=== PATIENT | female | born 1995 | race Caucasian/White ===

== ENCOUNTER 2017-03-16 09:36 | Emergency (ER) | payer BC, OTHER ==
[~2017-03-16] VITALS: Ht 167.6 cm; Wt 61.7 kg
[~2017-03-16 09:36] MED LIST: BCPILLS PO; IBUP-1277 PO
[2017-03-16 09:47] VITALS: TEMP 36.9; Ht 167.6 cm; Wt 61.7 kg
[2017-03-16] MEDS ORDERED: AMOXICILLIN 250 MG CAP PO ONE (10:30)
[2017-03-16] MEDS ORDERED: CIPROFLOXACIN HCL 0.3% OP SOLN 2.5 ML BTL OP ONE (10:30)
[2017-03-16] MEDS ORDERED: OXYCODONE/ACETAMINOPHEN 5-325 TAB PO ONE (10:30)
--- NOTE | 2017-03-16 10:30 | EMERGENCY ROOM VISIT NOTE ---
ED Visit Note First contact with patient: 09:56 CHIEF COMPLAINT: Earache HISTORY OF PRESENT ILLNESS: This 22-year-old female patient presents to the emergency department ambulatory and states they have had a right sided earache the last 1 week. The pain is moderate, and is gradually increasing. They have noticed swelling and tenderness around the ear canal and pain below the ear on the upper neck. The pain is rated as severe and 8/10. The patient has not been swimming recently. The patient does have a history of ear problems and has had myringotomy tubes in the past. The patient has not had other URI symptoms to take. The patient has not had a fever. The patient has taken ibuprofen with minimal relief of the pain. She reports purulent and bloody drainage. REVIEW OF SYSTEMS: A 6 system review of systems was completed with positives and pertinent negatives listed in the HPI. ALLERGIES: No known allergies MEDICATIONS: control pills PMH: None SOCIAL HISTORY: The patient lives locally. She does not smoke PHYSICAL EXAM: Vital Signs: Reviewed Nurse's notes, vital signs stable. GENERAL : This is a 22-year-old female, in no acute distress, non toxic in appearance, well developed, well nourished. SKIN: Normal. MOUTH: The pharynx is normal in appearance and the tonsils are not enlarged. The airway is patent. There are no exudates over the tonsils. EARS: The right tympanic membrane is difficult to visualize given the swelling and drainage and the ear canal is swollen and inflamed and there is tragal tenderness. There is moderate drainage in the canal. The left tympanic membrane is pearly ferguson without erythema or bulging and the external auditory canal is clear. HEART: Regular rate and rhythm without murmurs gallops or rubs. LUNGS: Clear to auscultation bilaterally without wheezes, rales or rhonchi. No dullness to percussion. No accessory muscle use. No retractions. ED COURSE: I examined the patient. A wick was easily placed in the right ear by myself. Cipro drops were placed in the ear. She will also be placed on amoxicillin and was given a dose of 500 mg by mouth in the ER. The patient has significant discomfort and will also be placed on Percocet for a very short period. She should follow up with otolaryngology if symptoms persist. She should return with worsening symptoms. The patient was discharged home in stable condition. Problem List Medical Problems: (1) SYNCOPE AND COLLAPSE Status: Chronic Current/Historical Medications Scheduled Amoxicillin (Amoxil), 500 MG PO TID Ciprofloxacin/Dexamethasone (Ciprodex 0.3-0.1 %), 4 DROPS OT BID Scheduled PRN Oxycodone/Acetaminophen 5MG/325MG (Percocet 5MG/325MG), 1 TAB PO Q4H PRN for Pain Allergies Coded Allergies: No Known Allergies (Unverified , 03/16/17) Vital Signs Date Time Temp Pulse Resp B/P Pulse Ox O2 Delivery O2 Flow Rate FiO2 03/16/17 11:34 62 20 128/54 98 Room Air 03/16/17 09:47 36.9 85 16 121/84 100 Room Air Medications Administered Medications (Trade) Dose Ordered Sig/Elsy Route Start Time Stop Time Status Last Admin Dose Admin Oxycodone/ Acetaminophen (Percocet 5-325mg Tab) 1 tab NOW ONCE PO 03/16/17 10:30 03/16/17 10:31 DC 03/16/17 10:53 1 TAB Ciprofloxacin HCl (Ciprofloxacin 0.3% Op Soln) 5 drops NOW ONCE OP 03/16/17 10:30 03/16/17 10:31 DC 03/16/17 10:54 5 DROPS Amoxicillin (Amoxil Cap) 500 mg NOW ONCE PO 03/16/17 10:30 03/16/17 10:31 DC 03/16/17 10:53 500 MG Departure Information Impression Primary Impression: Otitis externa Additional Impression: Otitis media Dispostion Home / Self-Care Condition GOOD Prescriptions Amoxicillin (AMOXIL) 500 Mg Tab 500 MG PO TID for 10 Days, #30 TAB Prov: Joelle Donahue PA-C 03/16/17 Oxycodone/Acetaminophen 5MG/325MG (PERCOCET 5MG/325MG) Tab 1 TAB PO Q4H Y for Pain, #18 TAB For Initial Treatment Prov: Joelle Donahue PA-C 03/16/17 Ciprofloxacin/Dexamethasone (Ciprodex 0.3-0.1 %) 112 Drops/7.5 Ml Susp 4 DROPS OT BID for 5 Days, #7.5 ML Prov: Joelle Donahue PA-C 03/16/17 Referrals No Doctor, Assigned (PCP) Andrea Barkley MD Forms HOME CARE DOCUMENTATION FORM, IMPORTANT VISIT INFORMATION, WORK / SCHOOL INSTRUCTIONS Patient Instructions ED Otitis Externa, My [facility] Additional Instructions 4 drops in the right ear every 12 hours for 7 days Amoxicillin 500mg every 6-8 hours for infection Motrin 600 mg every 6-8 hours for moderate pain Percocet 1-2 tablet every 4-6 hours as needed for worse pain. No driving or alcohol use with Percocet and do not take with Tylenol. Recheck with ENT or your family doctor in 5-7 days if no improvement The ear wick should fall out in 5-7 days; if it does not you may need to see PCP or the ER to have it removed. Work Instructions Return To Work: 2 days Problem Qualifiers Primary Impression: Otitis externa
[2017-03-16] MEDS ORDERED: CPRDOTS OT (11:27)
[2017-03-16] MEDS ORDERED: OXYC-57 PO (11:27)
[2017-03-16] MEDS ORDERED: AMOX500T3 PO (11:27)
[2017-03-16 11:34] VITALS: BP 128/54; PULSE 62; O2SAT 98
== END 2017-03-16 11:59 | disposition home or self-care (01) ==
LOC: C.EDB 09:37
DX: H60.91 Unspecified otitis externa, right ear (principal); H66.91 Otitis media, unspecified, right ear; R55 Syncope and collapse

== ENCOUNTER → 2017-08-19 | Outpatient (CLI) | payer BC, OTHER ==
[~2017-08-19] MED LIST changes: +AMOX500T3 PO; -BCPILLS PO; -IBUP-1277 PO; +OXYC-57 PO
[2017-08-19 16:49] LABS: URINE APPEARANCE CLEAR (CLEAR); URINE BILIRUBIN NEG (NEG); URINE COLOR YELLOW; URINE EPITHELIAL CELL AUTO >30 /lpf (0-5); URINE NITRITE NEG (NEG); URINE PH 6.5 (4.5-7.5); URINE SPECIFIC GRAVITY 1.015 (1.000-1.030); UROBILINOGEN NEG (NEG)
[2017-08-19 16:58] LABS: MANUAL MICROSCOPIC REQUIRED? NO; REVIEW REQ? NO
== END | disposition home or self-care (01) ==
LOC: C.LAB1850 15:55
PROVIDERS: ATTEND Obstetrics & Gynecology
DX: R39.9 Unspecified symptoms and signs involving the genitourinary system (principal)

== ENCOUNTER → 2018-01-03 | Outpatient (CLI) | payer BC, OTHER ==
[~2018-01-03] MED LIST changes: -OXYC-57 PO
== END | disposition home or self-care (01) ==
LOC: C.LABSPEC 17:28
PROVIDERS: ATTEND Obstetrics & Gynecology
DX: Z34.01 Encounter for supervision of normal first pregnancy, first trimester (principal)

== ENCOUNTER → 2018-01-06 | Outpatient (CLI) | payer BC | END | disposition home or self-care (01) | LOC: C.LABSPEC 15:45 | PROVIDERS: ATTEND Obstetrics & Gynecology | DX: Z34.01 Encounter for supervision of normal first pregnancy, first trimester (principal) ==

== ENCOUNTER → 2018-01-06 | Outpatient (CLI) | payer BC | END | disposition home or self-care (01) | LOC: C.PAPS 09:21 | PROVIDERS: ATTEND Obstetrics & Gynecology | DX: Z34.01 Encounter for supervision of normal first pregnancy, first trimester (principal) ==

== ENCOUNTER → 2018-01-06 | Outpatient (CLI) | payer BC ==
[2018-01-06 15:35] LABS: BASO % 0.2 %; BASO ABS # 0.02 K/uL (0-0.2); EOS % 0.7 %; EOS ABS # 0.07 K/uL (0-0.5); HEMATOCRIT 36.4 % (37-47); IG# 0.03 K/uL (0.00-0.02); LYMPH % 14.8 %; MEAN CELL VOLUME 83.3 fL (80-100); MEAN CORPUSCULAR HEMOGLOBIN 29.7 pg (25-34); MEAN CORPUSCULAR HGB CONC 35.7 g/dl (32-36); MEAN PLATELET VOLUME 9.9 fL (7.4-10.4); MONO % 4.2 %; MONO ABS # 0.43 K/uL (0.11-0.59); NEUT % 79.8 %; NEUT ABS # 8.07 K/uL (1.4-6.5); PLATELET COUNT 292 K/uL (130-400); RED CELL DISTRIBUTION WIDTH CV 11.8 % (11.5-14.5); RED CELL DISTRIBUTION WIDTH SD 36.2 fL (36.4-46.3); WHITE BLOOD COUNT 10.12 K/uL (4.8-10.8)
== END | disposition home or self-care (01) ==
LOC: C.LAB1850 14:51
PROVIDERS: ATTEND Obstetrics & Gynecology
DX: Z34.01 Encounter for supervision of normal first pregnancy, first trimester (principal)

== ENCOUNTER → 2018-02-28 | Outpatient (CLI) | payer BC | END | disposition home or self-care (01) | LOC: C.LAB1850 16:03 | PROVIDERS: ATTEND Obstetrics & Gynecology | DX: Z34.02 Encounter for supervision of normal first pregnancy, second trimester (principal) ==

== ENCOUNTER → 2018-04-04 | Outpatient (CLI) | payer BC | END | disposition home or self-care (01) | LOC: C.LAB1850 11:13 | PROVIDERS: ATTEND Obstetrics & Gynecology | DX: O28.1 Abnormal biochemical finding on antenatal screening of mother (principal) ==

== ENCOUNTER 2019-03-31 17:08 | Inpatient (IN) ==
--- OUTSIDE RECORDS SUMMARY | 2019-03-31 17:11 | External Medical Summary | Continuity of Care Document ---
:1995 Author Name Jt Rivera, Provider Address Unavailable Unavailable , Care Team Providers Name Role Phone DIRECT[facility] OF [facility]ION SERVICES [facility], Nursing Station Unavailable Luis Vargas M.D. Unavailable [email or web address] PCP, UNKNOWN Unavailable Unavailable Unavailable Unavailable Unavailable Problems On depo medroxyprogesterone acetate for contraception (V25.4 9) (Z30.42) Oral contraceptive prescribed (V25.01) (Z30.011) Encounter for visit (V24.2) (Z39.2) S/P tube myringotomy (V45.89) (Z96.22) Failed hearing screening (794.15) (R94.120) Allergies and Adverse Reactions No Known Drug Allergies (Allergy) Medications medroxyPROGESTERone Acetate 150 MG/ML Intramuscular Mendoza spension; every 3 months Miguel Vargas Start: 18-Jan-2019 Quantity: 1 Milliliter Refills: 2 Pre-Nini TABS Refills: 0 Procedures History of Tonsillectomy Status: Complet ed History of Myringotomy - With Ventilating Tube Insertion Status: Completed Immunizations Hepatitis B On: Jan-1996 Hepatitis B On: 1996 DTaP - HIB On: 1996 IPV On: 1996 DTaP - HIB On: 1996 IPV On: 1996 Hepatitis B On: Jul-1996 DTaP - HIB On: Jul-1996 IPV On: Jul-1996 DTaP On: 26-Jan-1997 IPV On: 26-Jan-1997 MMR On: 26-Jan-1997 MMR On: 15-Jun-2000 Tdap On: 18-Jun-2011 8:46 Lot #: [id number], [employer] HPV (Gardasil) On: 18-Jun-2011 8:44 Lot #: [id number], [employer] Menactra Intramuscular Injectable On: 18-Jun-2011 8:46 Lot #: [id number], [employer] HPV (Gardasil) On: 18-Feb-2012 9:55 Lot #: [id number], [employer] Varicella On: 10-Mar-2012 15:42 Lot #: [id number], [employer] HPV (Gardasil) On: 11-Jul-2014 12:39 Lot #: [id number], [employer] Menactra Intramuscular Injectable On: 11-Jul-2014 12:39 Lot #: [id number], [employer] Vaqta 25 UNIT/0.5ML Intramuscular Suspension On: 11-Jul-2014 12:40 Lot #: [id number], [employer] PPD On: 30-Jul-2014 12:09 Lot #: [id number], [employer] Hepatitis A On: 17-Jul-2015 14:09 Lot #: [id number], [employer] Fluzone INJ On: 17-Jul-2015 14:11 Lot #: [id number], [employer] Fluzone Quadrivalent 0.5 ML Intramuscular Suspension On: Dec-2017 16:44 Lot #: [id number], [employer] Tdap (Adacel) On: 23-May-2018 16:10 Lot #: [id number], [employer] Family History Father Family history of type 2 diabetes mellitus (V18.0) (Z83.3) S tatus: Active FHx: hypercholesterolemia (V18.19) (Z83.42) Status: Active aunt Family history of breast cancer (V16.3) (Z80.3) Status: Acti ve Social History - Smoking Status Never smoker Plan of Treatment Planned Encounters Appointment; [facility], Nursing Station Start: 11-Apr-2019 9:3 0 Request Planned Observations Planned Goals not documented Results No Known Results Results not documented Encounters Appointment; [facility], Nursing Station 24-Jan-2019 9:30 Encounter Diagnosis: Problem not documented Appointment; Luis Vargas M.D. 14-Sep-2018 13:30 Encounter Diagnosis: Problem not documented Appointment; [facility], Nursing Station 08-Aug-2018 10:30 Encounter Diagnosis: Problem not documented Appointment; Luis Vargas M.D. 26-Jul-2018 15:30 Encounter Diagnosis: Problem not documented Appointment; Edmund Blanco M.D. 19-Jul-2018 15:20 Encounter Diagnosis: Problem not documented Appointment; Helen Washington M.D. 04-Jul-2018 15:50 Encounter Diagnosis: Problem not documented Appointment; Donte Martinez M.D. 20-Jun-2018 15:40 Encounter Diagnosis: Problem not documented Appointment; Tegan Gunter M.D. 06-Jun-2018 15:40 Encounter Diagnosis: Problem not documented Appointment; Luis Vargas M.D. 23-May-2018 15:40 Encounter Diagnosis: Problem not documented Appointment; Donte Martinez M.D. 25-Apr-2018 16:00 Encounter Diagnosis: Problem not documented Appointment; OBGYN [facility], Ultrasound 25-Apr-2018 15:45 Encounter Diagnosis: Problem not documented Appointment; Tegan Gunter M.D. 28-Mar-2018 11:50 Encounter Diagnosis: Problem not documented Appointment; OBGYN [facility], Ultrasound 28-Mar-2018 11:00 Encounter Diagnosis: Problem not documented Appointment; Helen Washington M.D. 28-Feb-2018 15:10 Encounter Diagnosis: Problem not documented Appointment; Chary Brown M.D. 31-Jan-2018 15:40 Encounter Diagnosis: Problem not documented Appointment; OB SC1, Procedure Rm 06-Jan-2018 14:00 Encounter Diagnosis: Problem not documented Appointment; Tegan Gunter M.D. 06-Jan-2018 14:00 Encounter Diagnosis: Problem not documented Appointment; OB [facility], Nursing Station 03-Jan-2018 15:00 Encounter Diagnosis: Problem not documented Appointment; Allison Duarte PA-C 09-Sep-2017 10:50 Encounter Diagnosis: Problem not documented Appointment; OBGYN SC[facility], Ultrasound 26-Aug-2017 13:00 Encounter Diagnosis: Problem not documented Appointment; Allison Duarte PA-C 19-Aug-2017 15:00 Encounter Diagnosis: Problem not documented Appointment; [facility], Nursing Station 11-Apr-2019 9:30 Encounter Diagnosis: Problem not documented
[2019-03-31] MEDS ORDERED: SODIUM CHLORIDE 0.9% 1000ML 1,000 ML IV ONE (17:38)
[2019-03-31] MEDS ORDERED: KETOROLAC TROMETHAMINE 15 MG/ML VIAL IV STA (17:38)
[2019-03-31] MEDS ORDERED: ONDANSETRON INJ 2 MG/ML 2 ML VIAL IV STA ×2 (17:38→19:21)
[2019-03-31 17:56] LABS: Basophils # (auto) 0.02 K/uL (0-0.2); Basophils % (auto) 0.1 %; Hematocrit (blood only) 41.7 % (37-47); Hemoglobin 15.1 g/dL (12.0-16.0); Immature Granulocytes # (auto) 0.06 K/uL (0.00-0.02); Immature Granulocytes % (auto) 0.3 %; Lymphocytes # (auto) 1.05 K/uL (1.2-3.4); Lymphocytes % (auto) 5.5 %; Mean Corpuscular Hgb Conc 36.2 g/dL (32-36); Mean Corpuscular Volume 81.9 fL (80-100); Mean Platelet Volume 10.4 fL (7.4-10.4); Monocytes # (auto) 0.45 K/uL (0.11-0.59); Monocytes % (auto) 2.4 %; Neutrophils # (auto) 17.54 K/uL (1.4-6.5); Neutrophils % (auto) 91.7 %; Platelet Count 329 K/uL (130-400); RDW Coefficient of Variation 12.5 % (11.5-14.5); RDW Standard Deviation 37.5 fL (36.4-46.3); Red Blood Count 5.09 M/uL (4.2-5.4); White Blood Count 19.12 K/uL (4.8-10.8)
[2019-03-31 18:05] LABS: Albumin Level 4.9 gm/dl (3.4-5.0); BUN Creatinine Ratio 15.3 (10-20); Bilirubin Direct 0.2 mg/dl (0-0.2); Calcium 9.9 mg/dl (8.5-10.1); Creatinine Clr Calc Pharmacy 95.3 ml/min; Est GFR (African American) 116.9; Est GFR (Non-African American) 100.9; Magnesium 1.7 mg/dl (1.8-2.4); Potassium 3.6 mmol/L (3.5-5.1)
[2019-03-31 18:07] LABS: Bilirubin,Total 0.9 mg/dl (0.2-1); Total Protein 8.2 gm/dl (6.4-8.2)
[2019-03-31 18:34] LABS: Appearance Urine Clear (Clear); Bilirubin Urine Negative (Negative); Blood Urine Negative (Negative); Color Urine Yellow; Glucose Urine UA Negative (Negative); Ketones Urine 1+ (Negative); Leukocyte Esterase Urine Negative (Negative); Nitrite Urine Negative (Negative); Specific Gravity Urine 1.015 (1.000-1.030); Urobilinogen Urine Negative (Negative); pH Urine 8.5 (4.5-7.5)
[2019-03-31 18:40] LABS: Protein Urine 1+ (Negative)
[2019-03-31 18:55] LABS: Bacteria Urine Negative (Negative); Epithelial Cell Urine >30 /lpf (0-5); RBC Urine 0-4 /hpf (0-4); WBC Urine 0-5 /hpf (0-5)
[2019-03-31] MEDS ORDERED: SODIUM CHLORIDE 0.9% 1000ML 1,000 ML IV SCH ×2 (19:00→19:30)
[2019-03-31] MEDS ORDERED: IOVERSOL 100ml IV PRN (19:00)
--- NOTE | 2019-03-31 19:12 | CT Scan Report ---
CT OF THE ABDOMEN AND PELVIS WITH CONTRAST CLINICAL HISTORY: Abdominal pain and vomiting. COMPARISON STUDY: CT of the abdomen and pelvis February 10, 2019. TECHNIQUE: Following IV administration of 95 mL of Optiray-320, axial images of the abdomen and pelvi s were obtained from the lung bases to the proximal femurs. Images were reviewed in the axial, sagitt al, and coronal planes. IV contrast was administered without complication. Automated exposure contro l was utilized for the study. A dose lowering technique was utilized adhering to the principles of A RAD. CT DOSE: 267.00 mGy.cm FINDINGS: Lung bases are clear. No pneumatosis, free air or portal venous gas is present. Periportal edema within the liver as well as mild gallbladder wall thickening may be related to hydration. The s pleen, adrenal glands, kidneys and pancreas are normal. No biliary or pancreatic ductal dilatation. T here is no peripancreatic or pericholecystic infiltration. Major vasculature is patent. There is no e vidence for a bowel obstruction. The appendix is normal. The caliber and wall thickness of small and large bowel are normal. No lymphadenopathy or ascites is present. There are no suspicious skeletal le sions. Pelvic calcifications reflect phleboliths. IMPRESSION: 1. No acute process within the abdomen or pelvis. 2. Mild periportal edema which may be related to hydration. Electronically signed by: Edu Gonzales M.D. 03/31/2019 7:11 PM
[2019-03-31] MEDS ORDERED: METOCLOPRAMIDE HCL INJ 5 MG/ML 2 ML VIAL IV ONE (20:22)
[2019-03-31] MEDS ORDERED: DiphenhydrAMINE HCL 50 MG/ML VIAL IV STA (20:22)
--- NOTE | 2019-03-31 20:30 | Ultrasound Report ---
US gallbladder CLINICAL HISTORY: Abdominal pain. Evaluate for cholecystitis. COMPARISON STUDY: CT of the abdomen and pelvis performed earlier today. FINDINGS: The liver is sonographically normal. There is no biliary ductal dilatation. The common bile duct measures 2 mm in caliber. The gallbladder is normal. There are no gallstones. The pancreas is w ithin normal limits. There is no right hydronephrosis. IMPRESSION: Normal right upper quadrant ultrasound. Electronically signed by: Edu Gonzales M.D. 03/31/2019 8:29 PM
--- NOTE | 2019-03-31 20:44 | Emergency Department Note ---
Entered by Karen Burk acting as a scribe for Brandon Lewis History of Present Illness General Chief complaint: Vomiting Stated complaint: NAUSEA, VOMITING, DIARRHEA Time Seen by Provider: 03/31/19 17:27 Source: patient Limitations: no limitations History of Present Illness Provider complaint: vomiting Onset (ago): hour(s) Location: mouth Maximum Pain Intensity: 4 Associated symptoms: + denies other symptoms (abdominal pain, pain with urination, blood in stool, blood in vomit, black vomit ) and + nausea/vomiting; no fever/chills Treatments prior to arrival: none The patient is a 24 year old female who presents to the Emergency Room with complaints of vomiting that began earlier in the day prior to arrival. The pa tient states that her vomit is a yellow/green color. The patient denies any vomit that is bloody or black in color. The patient states that she has nausea, fevers, chills, and abdominal pain. The patient denies any syncope, pain with urination, or blood in stools. The patient denies any other medical problems or chance of . Home Medications Home Medications Medication Instructions Recorded Confirmed Type medroxyprogesterone [Depo-Provera] 150 mg IM DIRECTED 02/07/19 03/31/19 History promethazine 25 mg PO Q6H PRN 03/31/19 03/31/19 History Allergies Allergy/AdvReac Type Severity Reaction Status Date / Time No Known Allergies Allergy Verified 03/31/19 18:21 Past Med/Surg History Social History Preferred Language: Mohawk Communication Ability: Effective Visual Impairment: No Limitations Hearing Ability: Normal Beliefs That Will Affect Care: None marital status: Single Current Living Situation: Significant Other Feels Safe at Home: Yes Smoking Status: Never smoker Second Hand Exposure: No Hx Alcohol Use: No Hx Substance Use: Yes substance use type: marijuana Review of Systems See HPI for pertinent positives & negatives. and A total of 10 systems reviewed and were otherwise negative Physical Exam Vital Signs Vital Signs - 24 hr 03/31/19 17:12 03/31/19 19:01 03/31/19 20:30 Temperature 37 C Temperature Source Oral Sepsis Recent Fever Within 48 Hours No Sepsis Action Taken by Nursing No Action Required Pulse Rate 76 Pulse Rate [Right Finger] 88 79 Respiratory Rate 22 18 18 Respiratory Effort / Characteristics Non-Labored Spontaneous Respiratory Depth Normal Blood Pressure 141/101 H Blood Pressure [Right Arm] 148/93 H Blood Pressure Mean 114 Blood Pressure Mean [Right Arm] 111 Blood Pressure Position Sitting Pulse Oximetry 100 98 100 Oxygen Delivery Method Room Air GENERAL: She is oriented to person, place, and time. She appears well-developed and well-nourished. She does not appear distressed. HENT: Exam performed. - Head: Normocephalic and atraumatic. - Right Ear: External ear normal. No mastoid tenderness. - Left Ear: External ear normal. No mastoid tenderness. -Mouth/Throat: The oropharynx is clear and moist. No trismus in the jaw. No dental abscesses or uvula swelling. No oropharyngeal exudate or tonsillar abscesses. EYES: Conjunctivae and EOM are normal. Pupils are equal, round, and reactive to light. Right eye exhibits no discharge. Left eye exhibits no discharge. No scleral icterus. NECK: Normal range of motion. Neck supple. No JVD present. No spinous process tenderness present. No carotid bruit present. No rigidity. No tracheal deviation and normal range of motion present. No Brudzinski's sign and no Kernig's sign noted. CV: Normal rate, regular rhythm, normal heart sounds and intact distal pulses. There is no peripheral edema. Palpable radial pulses bue. PULM/CHEST: Effort normal and breath sounds normal. No respiratory distress. No stridor. She has no wheezes. She has no rales. Chest Wall: She exhibits no tenderness. ABD: The abdomen is soft. Bowel sounds are normal. She has no distension. No mass is present. There is no tenderness. There is diffuse pain with palpitation to the abdomen. There is no rebound, no guarding, no Simpson's sign and no tenderness at McBurney's point. Rovsig negative MUSC/SKEL: Normal range of motion. There is no peripheral edema, tenderness or deformity. LYMPH: No cervical adenopathy. NEURO: She is alert and oriented to person, place, and time. She has normal strength. No cranial nerve deficit or sensory deficit. Coordination and gait normal. GCS eye subscore is 4. GCS verbal subscore is 5. GCS motor subscore is 6. cerbellar tests wnl. SKIN: Skin is warm and dry. She is not diaphoretic. PSYCH: She has a normal mood and affect. Her behavior is normal. Judgment and thought content normal. Course 1733: The patient was evaluated in room C8, and a complete history and physical examination were performed. 1899: I checked on and updated the patient on their results. The patient's vital signs are stable. The patient's labs are within normal limits. The patient's CT shows gallbladder wall thickening so a US of the gallbladder will be obtained for further examination. On the repeat exam, the patient is still nauseous and vomiting. A second round of fluids and antiemetics will be administered and if the patient's symptoms do not improve she will need to be admitted. The patient stated that she was admitted in January 2019 for similar episodes of vomiting and then discharged after being able to tolerate PO. The patient stated that she followed-up with GI after her discharge and states that she had a negative endoscopy. 2041: Vital signs stable. Ultrasound within normal limits. Patient still not able to tolerate p.o. and vomiting in the emergency department despite repeat doses of antiemetics have been given. Patient will be admitted to the [facility] service Dr. haddad. Administered Medications Sodium Chloride (Nss 1000ml) 1,000 mls @ 125 mls/hr IV .Q8H JAIRO Stop: 04/30/19 18:59 Last Admin: 03/31/19 19:23 Dose: 125 mls/hr Documented by: [id number] Ioversol (Optiray 320 100ml) 96 ml IV ONCE PRN PRN Reason: Interaction Checking Stop: 04/04/19 18:59 Last Admin: 03/31/19 19:00 Dose: 95 ml Documented by: [id number] Discontinued Medications Diphenhydramine HCl (Benadryl) 25 mg IV NOW STA Stop: 03/31/19 20:23 Last Admin: 03/31/19 20:34 Dose: 25 mg Documented by: [id number] Sodium Chloride (Nss 1000ml) 1,000 mls @ 999 mls/hr IV .Q1H1M ONE Stop: 03/31/19 18:38 Last Infusion: 03/31/19 18:55 Dose: 0 mls/hr Documented by: [id number] Admin: 03/31/19 17:48 Dose: 999 mls/hr Documented by: [id number] Ketorolac Tromethamine (Toradol) 15 mg IV NOW STA Stop: 05/17/19 17:39 Last Admin: 03/31/19 17:48 Dose: 15 mg Documented by: [id number] Metoclopramide HCl (Reglan) 5 mg IV ONE ONE Stop: 03/31/19 20:23 Last Admin: 03/31/19 20:34 Dose: 5 mg Documented by: [id number] Ondansetron HCl (Zofran) 4 mg IV NOW STA Stop: 03/31/19 17:39 Last Admin: 03/31/19 17:48 Dose: 4 mg Documented by: [id number] Ondansetron HCl (Zofran) 4 mg IV NOW STA Stop: 03/31/19 19:22 Last Admin: 03/31/19 19:24 Dose: 4 mg Documented by: [id number] Medical Decision Making Medical Records Attestation: I reviewed the patient's medical records. Home Medications Current Medication List: was personally reviewed by me Laboratory Data Attestation: I reviewed the patient's lab results. Result diagrams: 03/31/19 17:31 03/31/19 17:31 Lab Results 03/31/19 03/31/19 03/31/19 Range/Units 17:31 17:31 18:00 WBC 19.12 H (4.8-10.8) K/uL RBC 5.09 (4.2-5.4) M/uL Hgb 15.1 (12.0-16.0) g/dL Hct 41.7 (37-47) % MCV 81.9 (80-100) fL MCH 29.7 (25-34) pg MCHC 36.2 H (32-36) g/dL RDW Std Deviation 37.5 (36.4-46.3) fL RDW Coeff of Stan 12.5 (11.5-14.5) % Plt Count 329 (130-400) K/uL MPV 10.4 (7.4-10.4) fL Immature Gran % (Auto) 0.3 % Neut % (Auto) 91.7 % Lymph % (Auto) 5.5 % Kay % (Auto) 2.4 % Eos % (Auto) 0.0 % Baso % (Auto) 0.1 % Immature Gran # (Auto) 0.06 H (0.00-0.02) K/uL Neut # (Auto) 17.54 H (1.4-6.5) K/uL Lymph # (Auto) 1.05 L (1.2-3.4) K/uL Kay # (Auto) 0.45 (0.11-0.59) K/uL Eos # (Auto) 0.00 (0-0.5) K/uL Baso # (Auto) 0.02 (0-0.2) K/uL Sodium 138 (136-145) mmol/L Potassium 3.6 (3.5-5.1) mmol/L Chloride 108 H (98-107) mmol/L Carbon Dioxide 20 L (21-32) mmol/L Anion Gap 10.0 (3-11) BUN 13 (7-18) mg/dl Creatinine 0.82 (0.6-1.2) mg/dl Est Cr Clr Drug Dosing 95.3 ml/min Est GFR ( Amer) 116.9 Est GFR (Non-Af Amer) 100.9 BUN/Creatinine Ratio 15.3 (10-20) Glucose 159 H (70-99) mg/dl Calcium 9.9 (8.5-10.1) mg/dl Magnesium 1.7 L (1.8-2.4) mg/dl Total Bilirubin 0.9 (0.2-1) mg/dl Direct Bilirubin 0.2 (0-0.2) mg/dl AST 6 L (15-37) U/L ALT 24 (12-78) U/L Alkaline Phosphatase 78 (45-117) U/L Total Protein 8.2 (6.4-8.2) gm/dl Albumin 4.9 (3.4-5.0) gm/dl Lipase 44 L (73-393) U/L Urine Color Urine Appearance (Clear) Urine pH (4.5-7.5) Ur Specific [place] (1.000-1.030) Urine Protein (Negative) Urine Glucose (UA) (Negative) Urine Ketones (Negative) Urine Blood (Negative) Urine Nitrite (Negative) Urine Bilirubin (Negative) Urine Urobilinogen (Negative) Ur Leukocyte Esterase (Negative) Urine RBC (0-4) /hpf Urine WBC (0-5) /hpf Ur Epithelial Cells (0-5) /lpf Urine Bacteria (Negative) Hyaline Casts (0-5) /lpf POC Ur Test NEG (NEG) 03/31/19 Range/Units 18:00 WBC (4.8-10.8) K/uL RBC (4.2-5.4) M/uL Hgb (12.0-16.0) g/dL Hct (37-47) % MCV (80-100) fL MCH (25-34) pg MCHC (32-36) g/dL RDW Std Deviation (36.4-46.3) fL RDW Coeff of Stan (11.5-14.5) % Plt Count (130-400) K/uL MPV (7.4-10.4) fL Immature Gran % (Auto) % Neut % (Auto) % Lymph % (Auto) % Kay % (Auto) % Eos % (Auto) % Baso % (Auto) % Immature Gran # (Auto) (0.00-0.02) K/uL Neut # (Auto) (1.4-6.5) K/uL Lymph # (Auto) (1.2-3.4) K/uL Kay # (Auto) (0.11-0.59) K/uL Eos # (Auto) (0-0.5) K/uL Baso # (Auto) (0-0.2) K/uL Sodium (136-145) mmol/L Potassium (3.5-5.1) mmol/L Chloride (98-107) mmol/L Carbon Dioxide (21-32) mmol/L Anion Gap (3-11) BUN (7-18) mg/dl Creatinine (0.6-1.2) mg/dl Est Cr Clr Drug Dosing ml/min Est GFR ( Amer) Est GFR (Non-Af Amer) BUN/Creatinine Ratio (10-20) Glucose (70-99) mg/dl Calcium (8.5-10.1) mg/dl Magnesium (1.8-2.4) mg/dl Total Bilirubin (0.2-1) mg/dl Direct Bilirubin (0-0.2) mg/dl AST (15-37) U/L ALT (12-78) U/L Alkaline Phosphatase (45-117) U/L Total Protein (6.4-8.2) gm/dl Albumin (3.4-5.0) gm/dl Lipase (73-393) U/L Urine Color Yellow Urine Appearance Clear (Clear) Urine pH 8.5 H (4.5-7.5) Ur Specific [place] 1.015 (1.000-1.030) Urine Protein 1+ H (Negative) Urine Glucose (UA) Negative (Negative) Urine Ketones 1+ H (Negative) Urine Blood Negative (Negative) Urine Nitrite Negative (Negative) Urine Bilirubin Negative (Negative) Urine Urobilinogen Negative (Negative) Ur Leukocyte Esterase Negative (Negative) Urine RBC 0-4 (0-4) /hpf Urine WBC 0-5 (0-5) /hpf Ur Epithelial Cells >30 H (0-5) /lpf Urine Bacteria Negative (Negative) Hyaline Casts 5-10 H (0-5) /lpf POC Ur Test (NEG) Imaging Data Radiologist's Impression: Radiology results as stated below per my review and the radiologist's interpretation: CT OF THE ABDOMEN AND PELVIS WITH CONTRAST CLINICAL HISTORY: Abdominal pain and vomiting. COMPARISON STUDY: CT of the abdomen and pelvis February 10, 2019. TECHNIQUE: Following IV administration of 95 mL of Optiray-320, axial images of the abdomen and pelvis were obtained from the lung bases to the proximal femurs. Images were reviewed in the axial, sagittal, and coronal planes. IV contrast was administered without complication. Automated exposure control was utilized for the study. A dose lowering technique was utilized adhering to the principles of ALARA. CT DOSE: 267.00 mGy.cm FINDINGS: Lung bases are clear. No pneumatosis, free air or portal venous gas is present. Periportal edema within the liver as well as mild gallbladder wall thickening may be related to hydration. The spleen, adrenal glands, kidneys and pancreas are normal. No biliary or pancreatic ductal dilatation. There is no peripancreatic or pericholecystic infiltration. Major vasculature is patent. There is no evidence for a bowel obstruction. The appendix is normal. The caliber and wall thickness of small and large bowel are normal. No lymphadenopathy or ascites is present. There are no suspicious skeletal lesions. Pelvic calcifications reflect phleboliths. IMPRESSION: 1. No acute process within the abdomen or pelvis. 2. Mild periportal edema which may be related to hydration. Electronically signed by: Edu Gonzales M.D. 03/31/2019 7:11 PM US gallbladder CLINICAL HISTORY: Abdominal pain. Evaluate for cholecystitis. COMPARISON STUDY: CT of the abdomen and pelvis performed earlier today. FINDINGS: The liver is sonographically normal. There is no biliary ductal dilatation. The common bile duct measures 2 mm in caliber. The gallbladder is normal. There are no gallstones. The pancreas is within normal limits. There is no right hydronephrosis. IMPRESSION: Normal right upper quadrant ultrasound. Electronically signed by: Edu Gonzales M.D. 03/31/2019 8:29 PM Dictated: 03/31/192027 Transcribed: 03/31/192027 Blood Pressure Blood Pressure Findings: Elevated blood pressure Blood Pressure Disposition: elevated BP felt to be situational MDM Narrative 173: The patient was evaluated in room C8, and a complete history and physical examination were performed. 1899: I checked on and updated the patient on their results. The patient's vital signs are stable. The patient's labs are within normal limits. The patient's CT shows gallbladder wall thickening so a US of the gallbladder will be obtained for further examination. On the repeat exam, the patient is still nauseous and vomiting. A second round of fluids and antiemetics will be administered and if the patient's symptoms do not improve she will need to be admitted. The patient stated that she was admitted in January 2019 for similar episodes of vomiting and then discharged after being able to tolerate PO. The patient stated that she followed-up with GI after her discharge and states that she had a negative end oscopy. 2041: Vital signs stable. Ultrasound within normal limits. Patient still not able to tolerate p.o. and vomiting in the emergency department despite repeat doses of antiemetics have been given. Patient will be admitted to the [facility] service Dr. cervantes Impression & Plan Nausea and vomiting Discharge Plan Visit Data Chief Complaint: Vomiting Stated Complaint: NAUSEA, VOMITING, DIARRHEA ED Provider: Brandon Lewis Discharge Problem: Nausea and vomiting Patient Disposition: Being Evaluated by Hospitalist Forms Stand Alone Forms: My [facility], Important Visit Information Prescriptions Prescriptions: No Action medroxyprogesterone [Depo-Provera] 150 mg/mL suspension 150 mg IM DIRECTED RF: 0 promethazine 25 mg tablet 25 mg PO Q6H PRN (Reason: Nausea/Vomiting) RF: 0 Referrals Referrals: PCP,NO [Primary Care Provider] - The scribe's documentation has been prepared under my direction and personally reviewed by me in its entirety. I confirm that the note above accurately reflects all work, treatment, procedures, and medical decision making performed by me.
[2019-03-31] MEDS ORDERED: ACETAMINOPHEN 325 MG TAB PO PRN (22:23)
[2019-03-31] MEDS ORDERED: MAGNESIUM SULFATE / D5W 1 GM/100 ML BAG IV ONE (22:23)
[2019-03-31] MEDS: D5W AND NSS 1,000 ML IV SCH (22:44)
[2019-04-01] MEDS: PROMETHAZINE HCL 12.5 MG in SODIUM CHLORIDE 0.9% 50 ML IV PRN ×3 (01:08→16:35)
[2019-04-01] MEDS: ONDANSETRON INJ 2 MG/ML 2 ML VIAL IV PRN ×4 (02:35→21:43)
--- NOTE | 2019-04-01 04:58 | History and Physical Report ---
DATE OF ADMISSION: 03/31/2019 CHIEF COMPLAINT: Nausea, vomiting and diarrhea. HISTORY OF PRESENT ILLNESS: This is a 24-year-old female with no significant past medical history presents with nausea, vomiting and diarrhea and abdominal discomfort started this morning. Patient was here with similar complaints on 02/01/2019. At that time, CAT scan was done, showed questionable inflammatory change in the distal ileum. Patient followed with GI with EGD in February first week and it was unremarkable and path report also unremarkable. GI recommended colonoscopy because of the inflammatory changes in the ileum region but before that plan for ESR and CRP which was not done yet. The patient upon discharge was doing okay until again current episodes started today morning. She had about 15 bouts of diarrhea, which was loose. Denies any blood in the stools and also had several episodes of vomiting and nausea. CT of the abdomen and pelvis, gallbladder ultrasound done in the ER today are unremarkable. Labs showed leukocytosis. The patient is afebrile. Denies any chest pain, shortness of breath, no cough, no fever, no chills, no headache. Currently, resting comfortable and hemodynamically stable. She says that last time she smoked marijuana was in first week of February. ALLERGIES: No known drug allergies. PAST MEDICAL HISTORY: As mentioned above. PAST SURGICAL HISTORY: EGDs, tonsillectomy and adenoidectomy. MEDICATIONS: Currently on Bentyl 10 mg p.o. daily p.r.n. Depo-Provera as directed by physician office every 3 months. FAMILY HISTORY: Significant for father has diabetes. Maternal grandmother has cancer. SOCIAL HISTORY: Single. No smoking, no alcohol, no drug use. Smokes marijuana. REVIEW OF SYMPTOMS: As per HPI. Rest of review of symptoms negative. PHYSICAL EXAMINATION: GENERAL: The patient is of moderate build, not in acute distress. VITAL SIGNS: Temperature 37, pulse 79, respiratory rate 18, blood pressure 148/93, oxygen 100% on room air. HEENT: No pallor, no icterus. Pupils equal, round, and reactive to light. NECK: No JVD. No lymphadenopathy or bruit. CARDIOVASCULAR: S1, S2 heard, regular rate and rhythm, no murmur, no gallop. RESPIRATORY SYSTEM: Normal AP diameter. No accessory muscle use. No wheezing, no crackles. ABDOMEN: Soft. Bowel sounds present. Mild abdominal discomfort. No distention, no rigidity. CENTRAL NERVOUS SYSTEM: Cranial nerves II-XII grossly intact, nonfocal. EXTREMITIES: No edema, no erythema. LABS: WBC 19, hemoglobin 15.1, hematocrit 41.7, platelets 329. Sodium 138, potassium 3.6, chloride 108, bicarbonate 20, BUN 13, creatinine 0.8, serum glucose 159, calcium 9.9, magnesium 1.1, total bilirubin 0.9, direct bilirubin 0.2, AST 60, ALT 24, alkaline phosphatase 78, lipase 44. Urinalysis positive for ketones, protein. Gallbladder ultrasound shows normal right upper quadrant ultrasound. CT of abdomen and pelvis shows no acute process in the abdomen and pelvis, mild periportal edema which may be related to hydration. ASSESSMENT AND PLAN: This is a 24-year-old female who presents with nausea, vomiting and diarrhea. 1. Nausea, vomiting, and diarrhea. She had similar episode in January that has improved with conservative management, again presents with similar episode. There is question of IBS. Plan for colonoscopy. Last CAT scan showed some infiltrative changes of ileum. EGD done recently was unremarkable. We will keep her n.p.o., IV fluids, IV Pepcid. GI consult. Check stool culture and stool for C. diff, ESR and CRP,IV fluids, iv antiemetics and close monitor. 2. Hypomagnesemia. We will replace. 3. Leukocytosis, mostly reactive. We will follow repeat labs. 4. Deep venous thrombosis prophylaxis. SCDs. 5. Disposition: Observation in the medical floor. Level 1 full code. MTDD
[2019-04-01] MEDS ORDERED: PROCHLORPERAZINE 5 MG in SYRINGE 4 ML IV ONE (05:00)
[2019-04-01 06:01] LABS: Basophils # (auto) 0.01 K/uL (0-0.2); Basophils % (auto) 0.1 %; Hematocrit (blood only) 40.5 % (37-47); Hemoglobin 13.9 g/dL (12.0-16.0); Immature Granulocytes # (auto) 0.03 K/uL (0.00-0.02); Immature Granulocytes % (auto) 0.2 %; Lymphocytes # (auto) 0.99 K/uL (1.2-3.4); Mean Corpuscular Hgb Conc 34.3 g/dL (32-36); Mean Corpuscular Volume 83.3 fL (80-100); Mean Platelet Volume 10.5 fL (7.4-10.4); Monocytes # (auto) 0.54 K/uL (0.11-0.59); Monocytes % (auto) 3.8 %; Neutrophils # (auto) 12.54 K/uL (1.4-6.5); Neutrophils % (auto) 88.9 %; Platelet Count 292 K/uL (130-400); RDW Coefficient of Variation 12.5 % (11.5-14.5); RDW Standard Deviation 37.6 fL (36.4-46.3); Red Blood Count 4.86 M/uL (4.2-5.4); White Blood Count 14.11 K/uL (4.8-10.8)
[2019-04-01 06:41] LABS: BUN Creatinine Ratio 9.4 (10-20); Blood Urea Nitrogen 6 mg/dl (7-18); C Reactive Protein < 0.29 mg/dl (0-0.29); Calcium 8.8 mg/dl (8.5-10.1); Carbon Dioxide 22 mmol/L (21-32); Chloride 106 mmol/L (98-107); Creatinine Clr Calc Pharmacy 124.1 ml/min; Est GFR (African American) 146.5; Est GFR (Non-African American) 126.4; Glucose 145 mg/dl (70-99); Magnesium 2.1 mg/dl (1.8-2.4); Sodium 135 mmol/L (136-145)
[2019-04-01] MEDS ORDERED: POTASSIUM CHLORIDE 10 MEQ TABCR PO STA (06:48)
[2019-04-01] MEDS: D5W AND NSS 1,000 ML IV SCH ×3 (08:45→23:50)
--- NOTE | 2019-04-01 09:43 | Hospitalist Progress Note ---
Date of Service April 01, 2019 Assessment & Plan (1) Nausea and vomiting: Unclear etiology. Continue supportive care at this time. TSH and a.m. cortisol in a.m. Replaced electrolytes with repeat in a.m. UDS pending. Advance diet as tolerated. Appreciate continued GI recommendations. (2) Leukocytosis: Improved from 19 yesterday to 14 today. (3) Hypokalemia: Replace and repeat in a.m. along with magnesium. (4) Marijuana abuse: Continue marijuana cessation. UDS pending. (5) DVT prophylaxis: SCDs, ambulation Full code Disposition-hospitalized until she can reliably eat. Mignon Bhatia DO [facility] Hospitalist Subjective 24-year-old female with recent hospitalization for intractable nausea and vomiting presented again for acute nausea and vomiting that began yesterday morning. She cannot identify a trigger and denies any concerning foods or sick contacts. She denies any fevers, chills or other recent illnesses leading up to this. She denies any diarrhea but does report that since her last discharge she has continued to have alternating constipation and loose stools. She is reporting 2-3 loose stools per day. She underwent an endoscopy with GI as outpatient and they are currently following her progress. She denies any recent marijuana use. UDS is pending. She reports that no antiemetic given to her has helped her nausea. She denies any abdominal pain or other issues at this time. Review of Systems Review of Systems: All systems reviewed & are unremarkable except as noted in HPI & below Physical Exam Physical Exam: CONSTITUTIONAL: WNWD, vitals as above, generally well- appearing EYES: PERRL, normal conjuctivae, no scleral icterus ENT: MMM RESPIRATORY: clear to auscultation bilaterally, no crackles, rales or wheezes, normal respiratory effort CARDIOVASCULAR: regular rate and rhythm, S1 and 2 heard without murmurs, gallops or rubs, no JVD, no peripheral edema CHEST: inspection of chest was normal GASTROINTESTINAL: normal bowel sounds, soft, nontender, nondistended MUSCULOSKELETAL: strength 5/5 throughout, head is normocephalic and atraumatic SKIN: warm and dry NEUROLOGIC: No gross focal deficit PSYCHIATRIC: alert cooperative and oriented to person, place and time. Results & Data Vital Signs (Past 12 Hours) Vital Signs Temp Pulse Resp BP Pulse Ox 04/01/19 07:00 36.8 C 56 L 18 129/77 98 03/31/19 22:25 36.7 C 65 20 126/74 98 Laboratory Results Short CBC 03/31/19 04/01/19 Range/Units 17:31 05:08 WBC 19.12 H 14.11 H (4.8-10.8) K/uL Hgb 15.1 13.9 (12.0-16.0) g/dL Hct 41.7 40.5 (37-47) % Plt Count 329 292 (130-400) K/uL BMP 03/31/19 04/01/19 17:31 05:08 Sodium 138 135 L Potassium 3.6 3.0 L D Chloride 108 H 106 Carbon Dioxide 20 L 22 BUN 13 6 L D Creatinine 0.82 0.63 Glucose 159 H 145 H Calcium 9.9 8.8 Liver Function 03/31/19 Range/Units 17:31 Total Bilirubin 0.9 (0.2-1) mg/dl Direct Bilirubin 0.2 (0-0.2) mg/dl AST 6 L (15-37) U/L ALT 24 (12-78) U/L Alkaline Phosphatase 78 (45-117) U/L Albumin 4.9 (3.4-5.0) gm/dl Urine 03/31/19 Range/Units 18:00 Urine Color Yellow Urine Appearance Clear (Clear) Urine pH 8.5 H (4.5-7.5) Ur Specific [place] 1.015 (1.000-1.030) Urine Protein 1+ H (Negative) Urine Glucose (UA) Negative (Negative) Medications Administered Current Inpatient Medications Acetaminophen (Tylenol) 650 mg PO Q4H PRN PRN Reason: pain/fever Stop: 04/30/19 22:22 Clonazepam (Klonopin) 0.5 mg PO Q12H PRN PRN Reason: refractory nausea Stop: 05/01/19 12:47 Dextrose/Sodium Chloride (D5w And Nss) 1,000 mls @ 125 mls/hr IV .Q8H JAIRO Stop: 04/30/19 22:22 Last Admin: 04/01/19 08:45 Dose: 125 mls/hr Documented by: Promethazine HCl 12.5 mg/ (Sodium Chloride) 50.5 mls @ 202 mls/hr IV Q6H PRN PRN Reason: Nausea And Vomiting Stop: 04/30/19 23:10 Last Infusion: 04/01/19 07:45 Dose: Infused Documented by: Famotidine 20 mg/ Syringe 5 mls @ 2.5 mls/min IV BID [facility] Stop: 05/01/19 08:59 Last Admin: 04/01/19 09:55 Dose: 2.5 mls/min Documented by: Potassium Chloride 40 meq/ (Sodium Chloride) 520 mls @ 125 mls/hr IV .Q4H10M [facility] Stop: 04/01/19 14:39 Last Admin: 04/01/19 10:27 Dose: 125 mls/hr Documented by: Ondansetron HCl (Zofran) 4 mg IV Q6H PRN PRN Reason: Nausea Stop: 04/30/19 22:22 Last Admin: 04/01/19 08:45 Dose: 4 mg Documented by: (1) Nausea and vomiting Vomiting Intractability: intractable Vomiting type: unspecified Qualified Code(s): R11.2 - Nausea with vomiting, unspecified
[2019-04-01] MEDS: FAMOTIDINE 20 MG in SYRINGE 3 ML IV SCH ×2 (09:55→21:12)
[2019-04-01] MEDS ORDERED: POTASSIUM CHLORIDE 40 MEQ in SODIUM CHLORIDE 0.9% 500 ML IV SCH (10:30)
--- NOTE | 2019-04-01 11:10 | Gastrointestinal Consultation ---
Date of Consultation April 01, 2019 Assessment & Plan (1) Nausea and vomiting: Refractory and cyclical nausea vomiting. Etiology at this time is unclear, obviously the differential diagnosis for this would include infectious etiologies, metabolic causes including cyclical nausea vomiting syndrome due to cannabinoid ingestion (she states she has not smoked any recent marijuana since February), endocrine abnormalities such as thyroid, pituitary, or adrenal issues. Other issues may be a recent contraceptive 3 months shot that she received in January she thinks prior to the initiation of these episodes. Recommendation Continue supportive care with antiemetics and IV fluids Thyroid and cortisol level tomorrow May warrant repeat inpatient EGD/enteroscopy. Other considerations would be colonoscopy given her prior history of potential terminal ileal inflammation or enterography however neither 1 of those I would pursue until able to tolerate p.o. Continued marijuana cessation. Consider repat KUB and NGT if emesis continues Liquids as tolerated History of Present Illness Attending Physician: Mignon Bhatia, DO History of Present Illness This is a 24-year-old female with a history of control use but otherwise unremarkable health status, who presents for the second time within the last 2 months of persistent and refractory nausea and vomiting. She presented in January of this year with a very similar presentation of intractable nausea vomiting, during that time she was treated symptomatically only but did have a CT scan that showed an suggested possible inflammatory changes in her mid to distal small bowel. She resolved without intervention and presented for an outpatient EGD that was largely unremarkable including biopsies, and also had one other episode of presenting to the emergency room that she was treated with capsaicin with her symptoms being resolved and discharged home. In the interval other than these episodes, she is been entirely normal, she does have intermittently loose bowels but her bowel habits have always been irregular. She denies any blood, she denies any melena hematochezia or hematemesis. She does have some crampy abdominal pain but overall just feels unwell. In her evaluation upon this presentation, labs are only significant for mild hypokalemia as well as elevated white count, LFTs as well as lipase are normal. Urine test is normal. Right upper quadrant ultrasound as well as CT scan are normal. Allergies Allergy/AdvReac Type Severity Reaction Status Date / Time No Known Allergies Allergy Verified 03/31/19 18:21 Home Medications Home Medications Medication Instructions Recorded Confirmed Type medroxyprogesterone [Depo-Provera] 150 mg IM DIRECTED 02/07/19 03/31/19 History promethazine 25 mg PO Q6H PRN 03/31/19 03/31/19 History Patient History Medical History Hx: UTI (urinary tract infection) [place] teeth removed Surgical History History of tonsillectomy S/P T&A (status post tonsillectomy and adenoidectomy) Status post wisdom tooth extraction Family History Father Hypertension Other Cancer Diabetes Heart disease Social History Preferred Language: [place] Communication Ability: Effective Visual Impairment: No Limitations Hearing Ability: Normal Recovery Analyst Required: No Beliefs That Will Affect Care: None marital status: Single Current Living Situation: Significant Other Other Information That Helps Us Care for You: No Feels Safe at Home: Yes Safety Concerns: Feels Safe At This Time Smoking Status: Never smoker Do You Dip or Chew Tobacco: No Second Hand Exposure: No Hx Alcohol Use: No Hx Substance Use: No Review of Systems Review of Systems: All systems reviewed & are unremarkable except as noted in HPI & below Results & Data Vital Signs (Past 12 Hours) Vital Signs Temp Pulse Resp BP Pulse Ox 04/01/19 07:00 36.8 C 56 L 18 129/77 98 (1) Nausea and vomiting Vomiting Intractability: intractable Vomiting type: unspecified Qualified Co de(s): R11.2 - Nausea with vomiting, unspecified
[2019-04-01] MEDS ORDERED: clonazePAM 0.5 MG TAB PO PRN (12:48)
[2019-04-01 13:27] LABS: Amphetamines+Metham, Urine Neg (Neg); Barbiturates, Urine Neg (Neg); Benzodiazepine, Urine Neg (Neg); Cocaine, Urine Neg (Neg); MDMA (Ecstacy), Urine Neg (Neg); Methadone, Urine Neg (Neg); Opiate, Urine Neg (Neg); Phencyclidine, Urine Neg (Neg)
[2019-04-01] MEDS ORDERED: LORazepam 0.5 MG/1 ML VIAL IV STA (18:00)
[2019-04-01] MEDS ORDERED: METOCLOPRAMIDE HCL INJ 5 MG/ML 2 ML VIAL IV ONE (21:56)
[2019-04-01] MEDS ORDERED: DiphenhydrAMINE HCL 50 MG/ML VIAL IV STA (22:06)
[2019-04-02] MEDS ORDERED: METOCLOPRAMIDE HCL INJ 5 MG/ML 2 ML VIAL ONE (00:49)
[2019-04-02] MEDS ORDERED: DiphenhydrAMINE HCL 50 MG/ML VIAL ONE (00:49)
[2019-04-02] MEDS: ONDANSETRON INJ 2 MG/ML 2 ML VIAL IV PRN ×2 (04:57→11:47)
[2019-04-02 06:57] LABS: Hematocrit (blood only) 41.1 % (37-47); Hemoglobin 14.3 g/dL (12.0-16.0); Mean Corpuscular Hgb Conc 34.8 g/dL (32-36); Mean Corpuscular Volume 82.7 fL (80-100); Mean Platelet Volume 10.4 fL (7.4-10.4); Platelet Count 318 K/uL (130-400); RDW Coefficient of Variation 12.5 % (11.5-14.5); RDW Standard Deviation 37.3 fL (36.4-46.3); Red Blood Count 4.97 M/uL (4.2-5.4); White Blood Count 10.71 K/uL (4.8-10.8)
[2019-04-02] MEDS: D5W AND NSS 1,000 ML IV SCH ×2 (07:11→16:05)
[2019-04-02] MEDS: PROMETHAZINE HCL 12.5 MG in SODIUM CHLORIDE 0.9% 50 ML IV PRN (07:11)
[2019-04-02 07:31] LABS: BUN Creatinine Ratio 7.8 (10-20); Calcium 9.2 mg/dl (8.5-10.1); Est GFR (African American) 142.9; Est GFR (Non-African American) 123.3; Magnesium 1.8 mg/dl (1.8-2.4)
--- NOTE | 2019-04-02 07:59 | Gastroenterology Progress Note ---
Date of Service April 02, 2019 Assessment & Plan (1) Nausea and vomiting: Refractory and cyclical nausea vomiting. Etiology at this time is unclear, obviously the differential diagnosis for this would include infectious etiologies, metabolic causes including cyclical nausea vomiting syndrome due to cannabinoid ingestion (she states she has not smoked any recent marijuana since February), endocrine abnormalities such as thyroid, pituitary, or adrenal issues. Other issues may be a recent contraceptive 3 months shot that she received in January she thinks prior to the initiation of these episodes. Recommendation Continue supportive care with antiemetics and IV fluids, consider increasing Phenergan to 25 mg Thyroid levels given low TSH, follow cortisol level was drawn this morning May warrant repeat inpatient EGD/enteroscopy make n.p.o. after midnight we will plan on procedure tomorrow morning, should also at some point have colonoscopy given her prior history of potential terminal ileal inflammation or enterography however neither 1 of those I would pursue until able to tolerate p.o. Continued marijuana cessation. Liquids as tolerated HIDA scan tomorrow Subjective Still having nausea vomiting no diarrhea No acute events overnight. WBC count has improved, TSH is low Review of Systems Review of Systems: All systems reviewed & are unremarkable except as noted in HPI & below Physical Exam Constitutional: WD/WN, vitals as above Cardiovascular: RRR, no murmur, no edema Gastrointestinal (Abdomen): normal bowel sounds, soft, nontender, no hepatosplenomegaly Results & Data Vital Signs (Past 12 Hours) Vital Signs Temp Pulse Resp BP BP Pulse Ox 04/02/19 07:50 36.8 C 62 16 126/76 98 04/02/19 00:55 36.4 C L 53 L 18 154/94 H 99 (1) Nausea and vomiting Vomiting Intractability: intractable Vomiting type: unspecified Qualified Code(s): R11.2 - Nausea with vomiting, unspecified
[2019-04-02] MEDS: LORazepam 0.5 MG/1 ML VIAL IV PRN ×2 (09:23→20:43)
[2019-04-02] MEDS: FAMOTIDINE 20 MG in SYRINGE 3 ML IV SCH ×2 (09:23→20:44)
--- NOTE | 2019-04-02 09:57 | Hospitalist Progress Note ---
Date of Service April 02, 2019 Assessment & Plan (1) Nausea and vomiting: Unclear etiology. Continue supportive care at this time. Differential diagnosis includes but is not limited to marijuana use, hyperthyroidism, adrenal insufficiency, inflammatory bowel disease, gastroparesis, adverse reaction to Depo-Provera shot. The patient states that her last use of marijuana was over a month ago, however, UDS is positive. Continued cessation advised. TSH was low with normal free T4. Subclinical hyperthyroidism is possible. There are no other hyperthyroid symptoms including changes in eating habits, anxiety, insomnia. Discussed briefly with endocrinology at [facility] who r ecommended auto antibody testing and a thyroid ultrasound. Dr. saenz from [facility] is exploring an endoscopy with enteroscopy in a.m. Colonoscopy will be considered when she is able to tolerate p.o. Additionally will obtain a HIDA scan despite normal right upper quadrant ultrasound results. Of note leukocytosis has resolved on labs this morning. Additionally will obtain a serum hCG and urine porphyrins to rule out other rare possibilities that are less likely. It is interesting that she did have nausea and vomiting with oral contraceptive pills which was the reason for the switch to Depo-Provera. We discussed an alternative including NuvaRing which may be less toxic to her in the future. For now Depo-Provera should be put on hold and other forms of contraception used in the meantime. Potassium will be replaced again today and rechecked in the morning. Diet was advanced to include no dairy at her request. She is allowed to take a shower. Continue IV fluids while intolerant of n.p.o. but these may be stopped while she takes a shower. Continue supportive care today with antiemetics and IV fluids as well as Ativan as needed which seems to help her while awaiting studies tomorrow. This plan was discussed with her parents who are at bedside. (2) Leukocytosis: resolved. (3) Hypokalemia: Replace and repeat in a.m.. (4) Marijuana abuse: Continue marijuana cessation. UDS was positive (5) DVT prophylaxis: SCDs, ambulation Full code Disposition-hospitalized until she can reliably eat. Mignon Bhatia DO [facility] Hospitalist Subjective +epigastric tenderness has been present, and somewhat worse today still cannot tolerate PO excessive vomiting overnight per her report no diarrhea no fevers denies changes in appetite prior to getting sick Depot use started in January Review of Systems Review of Systems: All systems reviewed & are unremarkable except as noted in HPI & below Physical Exam Physical Exam: CONSTITUTIONAL: WNWD, vitals as above, generally well- appearing EYES: PERRL, normal conjuctivae, no scleral icterus ENT: MMM, no ophthalmopathy is present. THYROID: no palpable nodules are present, normal exam. RESPIRATORY: clear to auscultation bilaterally, no crackles, rales or wheezes, normal respiratory effort CARDIOVASCULAR: regular rate and rhythm, S1 and 2 heard without murmurs, gallops or rubs, no JVD, no peripheral edema CHEST: inspection of chest was normal GASTROINTESTINAL: normal bowel sounds, soft, some epigastric tenderness is present MUSCULOSKELETAL: strength 5/5 throughout, head is normocephalic and atraumatic SKIN: warm and dry NEUROLOGIC: No gross focal deficit PSYCHIATRIC: alert cooperative and oriented to person, place and time. Results & Data Vital Signs (Past 12 Hours) Vital Signs Temp Pulse Resp BP BP Pulse Ox 04/02/19 07:50 36.8 C 62 16 126/76 98 04/02/19 00:55 36.4 C L 53 L 18 154/94 H 99 Laboratory Results Short CBC 04/02/19 Range/Units 06:16 WBC 10.71 (4.8-10.8) K/uL Hgb 14.3 (12.0-16.0) g/dL Hct 41.1 (37-47) % Plt Count 318 (130-400) K/uL BMP 04/02/19 06:16 Sodium 139 Potassium 3.0 L Chloride 108 H Carbon Dioxide 20 L BUN 5 L Creatinine 0.68 Glucose 118 H Calcium 9.2 Medications Administered Current Inpatient Medications Acetaminophen (Tylenol) 650 mg PO Q4H PRN PRN Reason: pain/fever Stop: 04/30/19 22:22 Dextrose/Sodium Chloride (D5w And Nss) 1,000 mls @ 125 mls/hr IV .Q8H JAIRO Stop: 04/30/19 22:22 Last Admin: 04/02/19 07:11 Dose: 125 mls/hr Documented by: Promethazine HCl 12.5 mg/ (Sodium Chloride) 50.5 mls @ 202 mls/hr IV Q6H PRN PRN Reason: Nausea And Vomiting Stop: 04/30/19 23:10 Last Infusion: 04/02/19 07:33 Dose: Infused Documented by: Famotidine 20 mg/ Syringe 5 mls @ 2.5 mls/min IV BID [facility] Stop: 05/01/19 08:59 Last Admin: 04/02/19 09:23 Dose: 2.5 mls/min Documented by: Lorazepam (Ativan) 0.5 mg in 1 mls @ 1 mls/min IV Q8H PRN PRN Reason: Nausea Stop: 05/02/19 08:25 Last Admin: 04/02/19 09:23 Dose: 1 mls/min Documented by: Potassium Chloride 40 meq/ (Sodium Chloride) 520 mls @ 125 mls/hr IV .Q4H10M [facility] Stop: 04/02/19 14:00 Ondansetron HCl (Zofran) 4 mg IV Q6H PRN PRN Reason: Nausea Stop: 04/30/19 22:22 Last Admin: 04/02/19 04:57 Dose: 4 mg Documented by: (1) Nausea and vomiting Vomiting Intractability: intractable Vomiting type: unspecified Qualified Code(s): R11.2 - Nausea with vomiting, unspecified
[2019-04-02] MEDS ORDERED: POTASSIUM CHLORIDE 40 MEQ in SODIUM CHLORIDE 0.9% 500 ML IV SCH (10:30)
--- NOTE | 2019-04-02 11:50 | Ultrasound Report ---
THYROID ULTRASOUND CLINICAL HISTORY: hyperthyroid, ?adenoma, ?struct change COMPARISON STUDY: None. TECHNIQUE: Sonography of the thyroid gland was performed. FINDINGS: The right thyroid lobe measures 5.5 x 1.3 x 1.7 cm and the left lobe measures 5.4 x 1.2 x 1 .7 cm. The thyroid gland is slightly heterogeneous. No thyroid nodule is noted. The adjacent soft tis sues are normal. The isthmus measures 0.3 cm in thickness. IMPRESSION: 1. No thyroid nodule. 2. Top normal size thyroid gland which is slightly heterogeneous. Electronically signed by: Edu Gonzales M.D. 04/02/2019 11:49 AM
[2019-04-02] MEDS: PROCHLORPERAZINE 10 MG in SYRINGE 8 ML IV PRN (17:50)
[2019-04-03] MEDS: D5W AND NSS 1,000 ML IV SCH ×3 (01:19→16:16)
[2019-04-03] MEDS: PROCHLORPERAZINE 10 MG in SYRINGE 8 ML IV PRN ×2 (05:53→12:11)
[2019-04-03 06:58] LABS: BUN Creatinine Ratio 7.8 (10-20); Calcium 9.2 mg/dl (8.5-10.1); Creatinine Clr Calc Pharmacy 93.1 ml/min; Est GFR (African American) 113.5; Potassium 2.9 mmol/L (3.5-5.1)
[2019-04-03] MEDS: POTASSIUM CHLORIDE 60 MEQ in SODIUM CHLORIDE 0.9% 1000ML 1,000 ML IV SCH ×2 (08:41→16:21)
--- NOTE | 2019-04-03 09:31 | Hospitalist Progress Note ---
Date of Service April 03, 2019 Assessment & Plan (1) Nausea and vomiting: Unclear etiology. Continue supportive care at this time. Differential diagnosis includes but is not limited to marijuana use, hyperthyroidism, adrenal insufficiency, inflammatory bowel disease, gastroparesis, adverse reaction to Depo-Provera shot. The patient states that her last use of marijuana was over a month ago, however, UDS is positive. Continued cessation advised. TSH was low with normal free T4. Subclinical hyperthyroidism is considered. There are no other hyperthyroid symptoms including changes in eating habits, anxiety, insomnia. Discussed briefly with endocrinology at [facility] who recommended auto antibody testing and a thyroid ultrasound. US normal and reference tests are still pending. Plan for HIDA and EGD/enteroscopy today. Serum porphyrins pending although very low likelihood this is AIP. Potassium will be replaced again today and rechecked this afternoon. May delay EGD. Diet was advanced to include no dairy at her request. She is allowed to take a shower. Continue IV fluids while intolerant of n.p.o. but these may be stopped while she takes a shower. (2) Hypokalemia: Replace and repeat in this afternoon. Likely 2/2 continued GI loss. (3) Marijuana abuse: Continue marijuana cessation. UDS was positive (4) DVT prophylaxis: SCDs, ambulation Full code Disposition-hospitalized until she can reliably eat. Mignon Bhatia DO [facility] Hospitalist Subjective Nausea seemed to improve overnight Limited vomiting overnight Epigastric pain is better currently NPO with HIDA planned for 1000 and EGD pending K increase with replacement today noted no BM since admission. Review of Systems Review of Systems: All systems reviewed & are unremarkable except as noted in HPI & below Physical Exam Physical Exam: CONSTITUTIONAL: WNWD, vitals as above, generally well- appearing EYES: normal conjuctivae, no scleral icterus ENT: MMM, no ophthalmopathy is present. RESPIRATORY: clear to auscultation bilaterally, no crackles, rales or wheezes, normal respiratory effort CARDIOVASCULAR: regular rate and rhythm, S1 and 2 heard without murmurs, gallops or rubs, no JVD, no peripheral edema GASTROINTESTINAL: normal bowel sounds, soft, nontender, nondistended MUSCULOSKELETAL: strength 5/5 throughout, head is normocephalic and atraumatic SKIN: warm and dry NEUROLOGIC: No gross focal deficit PSYCHIATRIC: alert cooperative and oriented to person, place and time. Results & Data Vital Signs (Past 12 Hours) Vital Signs Temp Pulse Resp BP Pulse Ox 04/03/19 06:34 36.8 C 64 16 144/96 H 98 04/02/19 22:58 36.7 C 70 18 120/72 97 Laboratory Results BMP 04/03/19 05:59 Sodium 138 Potassium 2.9 L Chloride 106 Carbon Dioxide 22 BUN 6 L Creatinine 0.84 Glucose 104 H Calcium 9.2 Medications Administered Current Inpatient Medications Acetaminophen (Tylenol) 650 mg PO Q4H PRN PRN Reason: pain/fever Stop: 04/30/19 22:22 Bisacodyl (Dulcolax) 10 mg NM DAILY PRN PRN Reason: Constipation Stop: 05/03/19 09:34 Dextrose/Sodium Chloride (D5w And Nss) 1,000 mls @ 125 mls/hr IV .Q8H JAIRO Stop: 04/30/19 22:22 Last Infusion: 04/03/19 08:42 Dose: Infused Documented by: Promethazine HCl 12.5 mg/ (Sodium Chloride) 50.5 mls @ 202 mls/hr IV Q6H PRN PRN Reason: Nausea And Vomiting Stop: 04/30/19 23:10 Last Infusion: 04/02/19 07:33 Dose: Infused Documented by: Famotidine 20 mg/ Syringe 5 mls @ 2.5 mls/min IV [facility]ID [facility] Stop: 05/01/19 08:59 Last Admin: 04/02/19 20:44 Dose: 2.5 mls/min Documented by: Lorazepam (Ativan) 0.5 mg in 1 mls @ 1 mls/min IV Q8H PRN PRN Reason: Nausea Stop: 05/02/19 08:25 Last Admin: 04/02/19 20:43 Dose: 1 mls/min Documented by: Prochlorperazine 10 mg/ (Syringe) 10 mls @ 5 mls/min IV Q6H PRN PRN Reason: Nausea And Vomiting Stop: 05/02/19 10:36 Last Admin: 04/03/19 05:53 Dose: 5 mls/min Documented by: Potassium Chloride 60 meq/ (Sodium Chloride) 1,030 mls @ 150 mls/hr IV .Q6H52M [facility] Stop: 05/03/19 08:29 Last Admin: 04/03/19 08:41 Dose: 150 mls/hr Documented by: Ondansetron HCl (Zofran) 4 mg IV Q6H PRN PRN Reason: Nausea Stop: 04/30/19 22:22 Last Admin: 04/02/19 11:47 Dose: 4 mg Documented by: Polyethylene Glycol (Miralax Powder Packet) 17 gm PO DAILY PRN PRN Reason: Constipation Stop: 05/03/19 09:34 (1) Nausea and vomiting Vomiting Intractability: intractable Vomiting type: unspecified Qualified Code(s): R11.2 - Nausea with vomiting, unspecified
[2019-04-03] MEDS ORDERED: POLYETHYLENE (MIRALAX) 17 GM PACK PO PRN (09:35)
[2019-04-03] MEDS ORDERED: BISACODYL 10 MG SUPP PR PRN (09:35)
[2019-04-03] MEDS: LORazepam 0.5 MG/1 ML VIAL IV PRN (09:39)
[2019-04-03] MEDS ORDERED: SODIUM CHLORIDE 0.9% IV SCH (10:30)
[2019-04-03] MEDS ORDERED: SINCALIDE IV SCH (10:30)
--- NOTE | 2019-04-03 11:32 | Gastroenterology Progress Note ---
Date of Service April 03, 2019 Assessment & Plan (1) Nausea and vomitin24 year old female has cyclical nausea vomiting, NPO for diagnostic enteroscopy today. NPO Continue antiemetics Continue supportive measures If nausea/vomiting persist will need Emend OP Colonoscopy Thank you for allowing us to participate in the care of this patient. Please call with any acute changes, questions or concerns. Please see addendum below with additional recommendation from my supervising physician. Supervising Physician Co-Signing Physician Notes I performed a history and physical examination of the patient, including spec ifically on history - no abdominal pain, nausea and vomiting improved. I have discussed the patient's management with Josee. Please refer to the nurse practitioner's note for the documented findings and plan of care. 24 Female patient admitted with nausea and vomiting, seems Cannabinioids related. Imaging unremarkable, HIDA today normal. Labs normal. Enteroscopy today got cancelled by anasthesia due to hypokalemia and vomiting. Plan: Enteroscopy tomorrow. GES as OP. Can use Ament if needed. Subjective Pt was seen and evaluated, chart reviewed Persisted nausea Did have dry heaves this AM Notes she brought up mucous, liquid around 0830 No black/bloody emesis No black/bloody stools No fever, chills. Review of Systems Constitutional: no fever, no chills and no fatigue Respiratory: no cough, no chest congestion and no dyspnea Cardiovascular: no chest pain, no chest pain at rest and no dyspnea Gastrointestinal: + abdominal pain, + nausea and + vomiting; no belching, no bloating, no early satiety, no heartburn, no coffee ground emesis, no hematemesis, no pain with swallowing, no dysphagia, no cramping, no excessive flatulence, no change in bowel habits, no change in stools, no constipation, no diarrhea/loose stools, no fecal incontinence, no constant urge to pass stools, no blood in stools, no melena and no problem reported Physical Exam Constitutional: WD/WN, vitals as above + acute distress Neck: trachea midline Respiratory: normal respiratory effort, lungs clear to auscultation Cardiovascular: Rate/Rhythm: regular rate and regular rhythm Gastrointestinal (Abdomen): Inspection/Auscultation: normal bowel sounds Percussion/Palpation: + abdomen tender and abdomen soft; no guarding and abdomen not rigid Skin: no rashes, warm and dry Results & Data Vital Signs (Past 12 Hours) Vital Signs Temp Pulse Resp BP Pulse Ox 04/03/19 06:34 36.8 C 64 16 144/96 H 98 (1) Nausea and vomiting Vomiting Intractability: intractable Vomiting type: unspecified Qualified Code(s): R11.2 - Nausea with vomiting, unspecified
--- NOTE | 2019-04-03 12:03 | Nuclear Medicine Report ---
NM hepatobiliary EF CLINICAL HISTORY: 24 years-old Female presenting with refractory vomiting. TECHNIQUE: Dynamic anterior imaging of the gallbladder was first acquired immediately following the i ntravenous administration of 5.5 mCi Tc-99m Choletec. Subsequently, dynamic delayed imaging of the ga llbladder was initiated 65 minutes after Choletec administration acquiring images every 5 minutes ove r a span of 40-60 minutes. The gallbladder ejection fraction was calculated from delayed imaging. PHARMACOLOGY: Medication: Sincalide 1.13 mcg administered IV 5 minutes prior to the start of delayed imaging as a 3 0 minute infusion. Oral meal: None. COMPARISON: CT from 03/31/2019. FINDINGS: Uniform hepatic tracer accumulation is shown. Prompt intrahepatic biliary excretion is seen. The gall bladder, common bile duct, and small bowel are all visualized by 31-35 minutes. Expected radiotracer activity within small bowel indicates an unobstructed common duct. The gallbladder subsequently demonstrates normal contraction with decreased radiotracer activity. Gallbladder ejection fraction (GBEF) measures 93%. Reference range (with Sincalide use): Unequivocally normal: Greater than 50%. Unequivocally abnormal: Less than 35%. Notably, the lower limit of normal GBEF in the setting of a lactose-free fatty-meal food supplement ( Boost shake) has been reported as > or = 33%. Sussy LEAL, Joni DA, Estefany LR, et al. Cholecystokinin cholescintigraphy: methodology and normal boogie ues using a lactose-free fatty-meal food supplement. J Nucl Med. 2003;44:8043-5847. IMPRESSION: 1. Normal gallbladder ejection fraction. No evidence of acute or chronic cholecystitis. Electronically signed by: Los Damian M.D. 04/03/2019 12:02 PM
--- NOTE | 2019-04-03 12:51 | Anesthesiology Consultation ---
Date of Service April 03, 2019 Hypokalemia Intractable nausea/vomiting Marijuana use History Surgery Operation Date: 04/03/19 09:00 Proposed Procedures p Small Bowel Enteroscopy - Cami Centeno MD Operation Date: 04/03/19 12:20 Proposed Procedures p Small Bowel Enteroscopy - Cami Centeno MD Height/Weight Height: 5 ft 6 in Weight: 56.6 kg Allergies Allergy/AdvReac Type Severity Reaction Status Date / Time No Known Allergies Allergy Verified 03/31/19 18:21 Medications Home Medications Medication Instructions Recorded Confirmed Last Taken medroxyprogesterone [Depo-Provera] 150 mg IM DIRECTED 02/07/19 03/31/19 02/10/19 promethazine 25 mg PO Q6H PRN 03/31/19 03/31/19 Unknown Active Medications Generic Name Dose Route Start Last Admin Trade Name Freq PRN Reason Stop Dose Admin Dextrose/Sodium Chloride 1,000 mls @ 125 mls/hr 03/31/19 22:23 04/03/19 08:42 D5w And Nss IV 04/30/19 22:22 Infused .Q8H JAIRO Infusion Promethazine HCl 12.5 mg/ 50.5 mls @ 202 mls/hr 03/31/19 23:11 04/02/19 07:33 Sodium Chloride IV 04/30/19 23:10 Infused Q6H PRN Infusion Nausea And Vomiting Famotidine 20 mg/ Syringe 5 mls @ 2.5 mls/min 04/01/19 09:00 04/02/19 20:44 IV 05/01/19 08:59 2.5 mls/min BID JAIRO Administration Lorazepam 0.5 mg in 1 mls @ 1 mls/min 04/02/19 08:26 04/03/19 09:39 Ativan IV 05/02/19 08:25 1 mls/min Q8H PRN Administration Nausea Prochlorperazine 10 mg/ 10 mls @ 5 mls/min 04/02/19 10:37 04/03/19 12:11 Syringe IV 05/02/19 10:36 5 mls/min Q6H PRN Administration Nausea And Vomiting Potassium Chloride 60 meq/ 1,030 mls @ 150 mls/hr 04/03/19 08:30 04/03/19 08:41 Sodium Chloride IV 05/03/19 08:29 150 mls/hr .Q6H52M JAIRO Administration Ondansetron HCl 4 mg 03/31/19 22:23 04/02/19 11:47 Zofran IV 04/30/19 22:22 4 mg Q6H PRN Administration Nausea NPO Date Last Intake of Fluids: 04/03/19 Time Last Intake of Fluids: 00:00 Date Last Intake of Solids: 04/02/19 Time Last Intake of Solids: 18:00 Past Medical History Medical History Hx: UTI (urinary tract infection) [place] teeth removed Past Family History Family History Father Hypertension Other Cancer Diabetes Heart disease Past Surgical History Surgical History History of tonsillectomy S/P T&A (status post tonsillectomy and adenoidectomy) Status post wisdom tooth extraction Social History Smoking Status: Never smoker Do You Dip or Chew Tobacco: No Hx Alcohol Use: No Hx Substance Use: No substance use type: does not use Physical Exam Vital Signs Last Vital Signs Temp 36.8 C 04/03/19 06:34 Pulse 64 04/03/19 06:34 Resp 16 04/03/19 06:34 BP 144/96 H 04/03/19 06:34 Pulse Ox 98 04/03/19 06:34 Testing Electrocardiogram Date: 04/02/19 Findings: + NSR @ (ectopic atrial rhythm) Other Testing Laboratory Tests 04/02/19 04/03/19 06:16 05:59 WBC 10.71 Hgb 14.3 Hct 41.1 Plt Count 318 Sodium 138 Potassium 2.9 L Chloride 106 Carbon Dioxide 22 BUN 6 L Creatinine 0.84 Glucose 104 H
[2019-04-03] MEDS ORDERED: PROPOFOL IV EMULSION 10 MG/ML 20 ML VIAL IV ONE (13:14)
[2019-04-03] MEDS ORDERED: DEXAMETHASONE SOD INJ 4 MG/ML VIAL ONE (13:14)
[2019-04-03] MEDS ORDERED: MIDAZOLAM HCL 1 MG/ML 2ML VIAL ONE (13:14)
[2019-04-03] MEDS ORDERED: PHENYLEPHRINE HCL 10 MG/ML VIAL ONE (13:14)
[2019-04-03] MEDS ORDERED: fentaNYL citrate 100 MCG/2 ML VIAL ONE (13:14)
[2019-04-03] MEDS ORDERED: ePHEDrine sulfate 50 MG/ML AMP ONE (13:14)
[2019-04-03] MEDS ORDERED: SUCCINYLCHOLINE CHLORIDE 20 MG/ML 10 ML VIAL ONE (13:14)
[2019-04-03] MEDS ORDERED: LIDOCAINE HCL 2% 2 ML VIAL/AMP(20MG/ML) INFIL ONE (13:14)
[2019-04-03] MEDS ORDERED: ONDANSETRON INJ 2 MG/ML 2 ML VIAL ONE (13:14)
[2019-04-03] MEDS: FAMOTIDINE 20 MG in SYRINGE 3 ML IV SCH ×2 (13:26→21:46)
[2019-04-03] MEDS ORDERED: FOSAPREPITANT DIMEGLUMINE 115 MG in 0.9 % SODIUM CHLORIDE 111.1667 ML IV PRN (15:38)
[2019-04-03] MEDS: PROMETHAZINE HCL 12.5 MG in SODIUM CHLORIDE 0.9% 50 ML IV PRN (16:17)
[2019-04-03 17:55] LABS: BUN Creatinine Ratio 9.1 (10-20); Calcium 9.3 mg/dl (8.5-10.1); Creatinine Clr Calc Pharmacy 104.2 ml/min; Est GFR (African American) 130.2; Est GFR (Non-African American) 112.4; Potassium 3.1 mmol/L (3.5-5.1)
[2019-04-04] MEDS: PROCHLORPERAZINE 10 MG in SYRINGE 8 ML IV PRN ×2 (00:44→07:49)
[2019-04-04] MEDS: D5W AND NSS 1,000 ML IV SCH ×3 (00:44→14:08)
[2019-04-04] MEDS: FAMOTIDINE 20 MG in SYRINGE 3 ML IV SCH (07:55)
[2019-04-04 08:21] LABS: BUN Creatinine Ratio 7.6 (10-20); Creatinine Clr Calc Pharmacy 116.7 ml/min; Est GFR (African American) 143.6; Est GFR (Non-African American) 123.9; Magnesium 1.9 mg/dl (1.8-2.4); Potassium 3.1 mmol/L (3.5-5.1)
[2019-04-04 08:22] LABS: Phosphorus 3.7 mg/dl (2.5-4.9)
--- NOTE | 2019-04-04 08:51 | Gastroenterology Progress Note ---
Date of Service April 04, 2019 Assessment & Plan (1) Nausea and vomitin24 year old female has cyclical nausea vomiting, NPO for diagnostic enteroscopy today. NPO Continue antiemetics Continue supportive measures If nausea/vomiting persist will need Emend which was ordered as one dose PRN OP Colonoscopy +/- GES Thank you for allowing us to participate in the care of this patient. Please call with any acute changes, questions or concerns. Please see addendum below with additional recommendation from my supervising physician. Supervising Physician Co-Signing Physician Notes I performed a history and physical examination of the patient, including specifically on physical exam - soft, nontender abdomen. I have discussed the patient's management with Josee. Please refer to the nurse practitioner's note for the documented findings and plan of care. Enteroscopy today, I explained the risk, benefit and alternatives and she agreed. Subjective Pt seen and evaluated, chart reviewed. Family at bedside No further nausea, vomiting Mild upper abd pain Did not require emend Moved bowels, non bloody No acute events noted overnight Review of Systems Constitutional: no fever and no chills Respiratory: no dyspnea Cardiovascular: no chest pain Gastrointestinal: + abdominal pain; no bloating, no nausea, no hematemesis, no cramping and no change in stools Physical Exam Constitutional: WD/WN, vitals as above Respiratory: normal respiratory effort, lungs clear to auscultation Cardiovascular: RRR, no murmur, no edema Gastrointestinal (Abdomen): Inspection/Auscultation: normal bowel sounds Percussion/Palpation: abdomen soft; abdomen nontender, no guarding and abdomen not rigid Skin: no rashes, warm and dry Results & Data Vital Signs (Past 12 Hours) Vital Signs Temp Pulse Resp BP Pulse Ox 04/04/19 00:40 36.6 C 71 18 136/94 99 (1) Nausea and vomiting Vomiting Intractability: intractable Vomiting type: unspecified Qualified Code(s): R11.2 - Nausea with vomiting, unspecified
[2019-04-04] MEDS ORDERED: ATROPINE SULFATE 0.1 MG/ML 10ML SYR IV PRN (09:08)
[2019-04-04] MEDS ORDERED: ePHEDrine sulfate 50 MG/ML AMP IV PRN (09:08)
[2019-04-04] MEDS ORDERED: PROPOFOL IV EMULSION 10 MG/ML 20 ML VIAL IV ONE (09:36)
[2019-04-04] MEDS ORDERED: fentaNYL citrate 100 MCG/2 ML VIAL ONE (09:36)
--- NOTE | 2019-04-04 10:09 | GI REPORT ---
Patient Name: Paris Cox Procedure Date: 04/04/2019 9:39 AM Date of : 1995 Admit Type: Inpatient Age: 24 Gender: Female Attending MD: Cami Centeno MD Procedure: Small bowel enteroscopy Providers: Cami Centeno MD Referring MD: Mignon Bhatia Do Indications: Abnormal abdominal CT, Nausea with vomiting Medicines: Monitored Anesthesia Care Complications: No immediate complications. Estimated Blood Loss: Estimated blood loss: none. Procedure: Pre-Anesthesia Assessment: - Prior to the procedure, a History and Physical was performed, and patient medications and allergies were reviewed. The patient is competent. The risks and benefits of the procedure and the sedation options and risks were discussed with the patient. All questions were answered and informed consent was obtained. Patient identification and proposed procedure were verified by the physician and the nurse in the procedure room. Mental Status Examination: alert and oriented. Airway Examination: normal oropharyngeal airway and neck mobility. Respiratory Examination: clear to auscultation. CV Examination: normal. ASA Grade Assessment: II - A patient with mild systemic disease. After reviewing the risks and benefits, the patient was deemed in satisfactory condition to undergo the procedure. The anesthesia plan was to use monitored anesthesia care (MAC). Immediately prior to administration of medications, the patient was re-assessed for adequacy to receive sedatives. The heart rate, respiratory rate, oxygen saturations, blood pressure, adequacy of pulmonary ventilation, and response to care were monitored throughout the procedure. The physical status of the patient was re-assessed after the procedure. After obtaining informed consent, the endoscope was passed under direct vision. Throughout the procedure, the patient's blood pressure, pulse, and oxygen saturations were monitored continuously. The scope was introduced through the mouth, and advanced to the mid-jejunum. After obtaining informed consent, the endoscope was passed under direct vision. Throughout the procedure, the patient's blood pressure, pulse, and oxygen saturations were monitored continuously.The small bowel enteroscopy was accomplished without difficulty. The patient tolerated the procedure well. Findings: LA Grade A (one or more mucosal breaks less than 5 mm, not extending between tops of 2 mucosal folds) esophagitis with no bleeding was found at the gastroesophageal junction. The entire examined stomach was normal. Biopsies were taken with a cold forceps for Helicobacter pylori testing. Verification of patient identification for the specimen was done by the physician and nurse using the patient's name and date. There was no evidence of significant pathology in the entire examined duodenum. There was no evidence of significant pathology in the entire examined portion of jejunum. Biopsies were taken with a cold forceps for histology. Impression: - LA Grade A reflux esophagitis. - Normal stomach. Biopsied. - Normal examined duodenum. - The examined portion of the jejunum was normal. Biopsied. Recommendation: - [facility]. - Await pathology results. - Follow an antireflux regimen. - Use a proton pump inhibitor PO daily for 2 months. Cami Centeno MD 04/04/2019 10:09:29 AM This report has been signed electronically. Note Initiated On: 04/04/2019 9:39 AM Number of Addenda: 0 I attest to the content of the Intraoperative Record and orders documented therein, exceptions below {[id number]}
--- NOTE | 2019-04-04 10:39 | Anesthesiology Progress Note ---
Date of Service April 04, 2019 Anesthesia Post Procedure Vital Signs Vital Signs: Temp Pulse Resp BP BP Pulse Ox 04/04/19 10:23 71 18 113/74 96 04/04/19 10:08 72 17 97/61 L 96 04/04/19 09:19 36.2 C L 82 18 136/94 97 04/04/19 09:14 36.7 C 69 18 143/101 H 98 04/04/19 00:40 36.6 C 71 18 136/94 99 04/03/19 15:14 36.8 C 75 18 157/99 H 97 Pain Intensity Abdomen: Pain Intensity: 2 Transfer of Care Handoff Completed per policy Notes Mental Status: alert / awake / arousable Patient Amnestic to Procedure: Yes Nausea / Vomiting: adequately controlled Pain: adequately controlled Airway Patency, RR, SpO2: stable & adequate BP & HR: stable & adequate Hydration State: stable & adequate Anesthetic Complications: no major complications apparent
[2019-04-04] MEDS ORDERED: POTASSIUM CHLORIDE 20 MEQ/15 ML UDC PO SCH (16:00)
--- NOTE | 2019-04-04 16:58 | Discharge Summary ---
Date of Service April 04, 2019 Discharge Data Allergies Allergy/AdvReac Type Severity Reaction Status Date / Time No Known Allergies Allergy Verified 03/31/19 18:21 Consultations 03/31/19 20:34 ED Decision to Admit Stat 04/01/19 08:00 Consult Gastroenterology Routine Procedures Performed Operation Date: 04/03/19 09:00 <No data on this case meets the specified criteria> Operation Date: 04/03/19 12:20 <No data on this case meets the specified criteria> Operation Date: 04/04/19 10:00 Actual Procedures p EGD Biopsy Cytology - Cami Centeno MD Ordered Studies 03/31/19 18:22 CT abd pelvis IV con only Stat 03/31/19 19:22 US gallbladder Stat 04/02/19 09:55 US thyroid Routine Hospital Course (1) Nausea and vomiting: Unclear etiology. Continue supportive care at this time. Differential diagnosis includes but is not limited to marijuana use, hyperthyroidism, adrenal insufficiency, inflammatory bowel disease, gastroparesis, adverse reaction to Depo-Provera shot. The patient states that her last use of marijuana was over a month ago, however, UDS is positive. Continued cessation advised. TSH was low with normal free T4. Subclinical hyperthyroidism is considered. There are no other hyperthyroid symptoms including changes in eating habits, anxiety, insomnia. Discussed briefly with endocrinology at [facility] who recommended auto antibody testing and a thyroid ultrasound. US normal and reference tests are still pending. Plan for HIDA and EGD/enteroscopy today. Serum porphyrins pending although very low likelihood this is AIP. Potassium will be replaced again today and rechecked this afternoon. May delay EGD. Diet was advanced to include no dairy at her request. She is allowed to take a shower. Continue IV fluids while intolerant of n.p.o. but these may be stopped while she takes a shower. (2) Hypokalemia: Replace and repeat in this afternoon. Likely 2/2 continued GI loss. (3) Marijuana abuse: Continue marijuana cessation. UDS was positive (4) DVT prophylaxis: SCDs, ambulation Full code Disposition-hospitalized until she can reliably eat. [facility] Discharge Plan Discharge Items Patient Disposition: Home - Self-Care Reason For Visit: NAUSEA,VOMITING Discharge Diagnosis: nausea and vomiting-resolved Condition: Good Discharge Goals: Improve disease control Activity: Resume your previous activity Non-emergency contact: Primary Care Provider Call non-emergency contact if: you have any medication questions, your symptoms worsen, your pain is not controlled and you have a fever Follow-up/Referrals: Becky Lynch DO [Physician] - Addtl Provider Instructions: Please take all medications as instructed on discharge list below. Avoid any further Depo-Provera injections at this time. Please followup with your primary care provider at the appointment below and discuss with them your abnormal thyroid studies to decide how to approach this. It is recommended that you continue avoiding marijuana products in any form. Please followup with [facility] Gastroenterology regarding your biopsy results. PRIMARY CARE APPOINTMENT: 04/07/2019 11:20 AM Becky Lynch DO [facility] It was a pleasure taking care of you! Please call if you have any questions or problems. You can reach a [facility] hospitalist on duty at [facility] 24 hours a day by calling [phone]. Take care of yourself. Mignon Bhatia DO [facility] Hospitalist Prescriptions: New prochlorperazine maleate [Compazine] 5 mg tablet 5 - 10 mg PO Q8H PRN (Reason: nausea and vomiting) Qty: 30 RF: 0 clonazepam 0.5 mg tablet 0.5 mg PO BID PRN (Reason: nausea and vomiting) Qty: 10 RF: 0 pantoprazole [Protonix] 40 mg tablet,delayed release (DR/EC) 40 mg PO DAILY Qty: 30 RF: 1 Continued promethazine 25 mg tablet 25 mg PO Q6H PRN (Reason: Nausea/Vomiting) RF: 0 Discontinued medroxyprogesterone [Depo-Provera] 150 mg/mL suspension 150 mg IM DIRECTED RF: 0 Stand-Alone Forms: My [facility] Discharge Orders: Discharge Order (Routine); Ordered 04/04/19 Ordered By: Mignon Bhatia Admission Data Admit Date/Time: 04/01/19 19:02 Attending Provider: Mignon Bhatia Admit Provider: Vasiliy Sarmiento Primary Care Provider: PCP,NO Other Providers: Vasiliy Sarmiento ; Jacoby Torres ; Dayan Interiano ; Stephanie Mandel ; Francis Castellanos ; Anthony De La Torre ; Sarkis Birch ; Felipa Duckworth ; Stefan Seth ; Greg Patel ; Josee Greene ; Jessy Ritchie ; Vero Jain ; Antonella Verma ; Cami Centeno Service: Medical Other Interventions: Discharge Summary Assessment (RN) Last Done: 04/04/19 10:45 Pending Studies at Discharge: Yes Studies:: Thyroid-stimulating immunoglobulin, thyroid antibody reference panel, infectious diarrhea panel, urine porphyria panel, biopsies from EGD
[2019-04-05 16:32] LABS: Microsomal Ab 1 IU/ML (<9); TSI <89 % baseline (<140); Thyroglobulin Antibodies <1 IU/ML (<OR=1)
--- NOTE | 2019-04-06 17:42 | Discharge Summary ---
Date of Service April 06, 2019 Admission HPI Per Admitting Provider HISTORY OF PRESENT ILLNESS: This is a 24-year-old female with no significant past medical history presents with nausea, vomiting and diarrhea and abdominal discomfort started this morning. Patient was here with similar complaints on 02/01/2019. At that time, CAT scan was done, showed questionable inflammatory change in the distal ileum. Patient followed with GI with EGD in February first week and it was unremarkable and path report also unremarkable. GI recommended colonoscopy because of the inflammatory changes in the ileum region but before that plan for ESR and CRP which was not done yet. The patient upon discharge was doing okay until again current episodes started today morning. She had about 15 bouts of diarrhea, which was loose. Denies any blood in the stools and also had several episodes of vomiting and nausea. CT of the abdomen and pelvis, gallbladder ultrasound done in the ER today are unremarkable. Labs showed leukocytosis. The patient is afebrile. Denies any chest pain, shortness of breath, no cough, no fever, no chills, no headache. Currently, resting comfortable and hemodynamically stable. She says that last time she smoked marijuana was in first week of February. Admission Exam Per Admitting Provider ALLERGIES: No known drug allergies. PHYSICAL EXAMINATION: GENERAL: The patient is of moderate build, not in acute distress. VITAL SIGNS: Temperature 37, pulse 79, respiratory rate 18, blood pressure 148/93, oxygen 100% on room air. HEENT: No pallor, no icterus. Pupils equal, round, and reactive to light. NECK: No JVD. No lymphadenopathy or bruit. CARDIOVASCULAR: S1, S2 heard, regular rate and rhythm, no murmur, no gallop. RESPIRATORY SYSTEM: Normal AP diameter. No accessory muscle use. No wheezing, no crackles. ABDOMEN: Soft. Bowel sounds present. Mild abdominal discomfort. No distention, no rigidity. CENTRAL NERVOUS SYSTEM: Cranial nerves II-XII grossly intact, nonfocal. EXTREMITIES: No edema, no erythema. Principal Diagnosis nausea and vomiting-resolved Discharge Data Allergies Allergy/AdvReac Type Severity Reaction Status Date / Time No Known Allergies Allergy Verified 03/31/19 18:21 Consultations 03/31/19 20:34 ED Decision to Admit Stat 04/01/19 08:00 Consult Gastroenterology Routine Procedures Performed Operation Date: 04/03/19 09:00 <No data on this case meets the specified criteria> Operation Date: 04/03/19 12:20 <No data on this case meets the specified criteria> Operation Date: 04/04/19 10:00 Actual Procedures p EGD Biopsy Cytology - Cami Centeno MD Ordered Studies 03/31/19 18:22 CT abd pelvis IV con only Stat 03/31/19 19:22 US gallbladder Stat 04/02/19 09:55 US thyroid Routine Hospital Course (1) Nausea and vomiting: (2) Hypokalemia: (3) Marijuana abuse: 24-year-old female presented with acute onset nausea and vomiting. She has a history of this with admission 2 months ago thought secondary to marijuana use. However, she denied any marijuana use since that time. UDS was positive for marijuana. Work-up revealed an elevated white count to 19 and hypokalemia which required several days of replacement. Lab work also revealed a normal lipase, no evidence of adrenal insufficiency and a TSH of 0.17 with a normal free T4 and normal free T3. Hyperthyroidism was originally considered and thyroid antibodies were ordered and negative. A thyroid ultrasound was also negative with reading noting a slightly heterogeneous appearing gland. No thyroid nodules were noted. Differential diagnosis included but was not limited to marijuana use, adverse reaction to Depo-Provera as a contraceptive, hyperthyroidism, inflammatory bowel disease, gastroparesis. Supportive care was only somewhat helpful and GI was consulted. A HIDA scan was performed which was normal. An upper endoscopy and enteroscopy was performed while admitted revealing evidence of esophagitis, a normal stomach which was biopsied, a normal examined duodenum, and the examined portion of the jejunum was normal and biopsied. She was placed on a proton pump inhibitor daily for 2 months. Upon returning from her endoscopy she continued to improve and was able to tolerate solid food. Physical exam at discharge was normal with no abdominal pain or distention. She was mentating and ambulating at baseline and was hemodynamically stable. She was discharged in stable condition with close primary care follow-up recommended. Depo-Provera was stopped until it was clear this issue was not recurring. AIP unlikely in the absence of pain but was considered; Urine porphyrins pending at time of discharge. Total Time Total Time Spent Total Time Spent (In Minutes): 60 Total Time Includes: Examination of the Patient, Discharge Planning, Medication Reconciliation and Communication With Other Providers Discharge Plan Discharge Items Patient Disposition: Home - Self-Care Reason For Visit: NAUSEA,VOMITING Discharge Diagnosis: nausea and vomiting-resolved Condition: Good Discharge Goals: Improve disease control Activity: Resume your previous activity Non-emergency contact: Primary Care Provider Call non-emergency contact if: you have any medication questions, your symptoms worsen, your pain is not controlled and you have a fever Follow-up/Referrals: Becky Lynch, [Physician] - Addtl Provider Instructions: Please take all medications as instructed on discharge list below. Avoid any further Depo-Provera injections at this time. Please followup with your primary care provider at the appointment below and discuss with them your abnormal thyroid studies to decide how to approach this. It is recommended that you continue avoiding marijuana products in any form. Please followup with [facility] Gastroenterology regarding your biopsy results. PRIMARY CARE APPOINTMENT: 04/07/2019 11:20 AM Becky Lynch DO [facility] It was a pleasure taking care of you! Please call if you have any questions or problems. You can reach a [facility] hospitalist on duty at [facility] 24 hours a day by calling [phone]. Take care of yourself. Mignon [facility]: New prochlorperazine maleate [Compazine] 5 mg tablet 5 - 10 mg PO Q8H PRN (Reason: nausea and vomiting) Qty: 30 RF: 0 clonazepam 0.5 mg tablet 0.5 mg PO BID PRN (Reason: nausea and vomiting) Qty: 10 RF: 0 pantoprazole [Protonix] 40 mg tablet,delayed release (DR/EC) 40 mg PO DAILY Qty: 30 RF: 1 Continued promethazine 25 mg tablet 25 mg PO Q6H PRN (Reason: Nausea/Vomiting) RF: 0 Discontinued medroxyprogesterone [Depo-Provera] 150 mg/mL suspension 150 mg IM DIRECTED RF: 0 Stand-Alone Forms: My [facility] Discharge Orders: Discharge Order (Routine); Ordered 04/04/19 Ordered By: Mignon Bhatia Admission Data Admit Date/Time: 04/01/19 19:02 Attending Provider: Mignon Bhatia Admit Provider: Palepu,Vasiliy P Primary Care Provider: PCP,NO Other Providers: Francis Castellanos Service: Medical Other Interventions: Discharge Summary Assessment (RN) Last Done: 04/04/19 17:09 Pending Studies at Discharge: Yes Studies:: Thyroid-stimulating immunoglobulin, thyroid antibody reference panel, infectious diarrhea panel, urine porphyria panel, biopsies from EGD DC Date/Time DO NOT enter until pt leaves facility: 04/04/19 18:29
[2019-04-08 20:19] LABS: Coproporphyrins I Random Ur 41.2 (6.5-33.2); Coproporphyrins III Random Ur 93.5 (4.8-88.6)
== END 2019-04-04 18:29 | disposition home or self-care (01) | DRG 103 ==
LOC: 4W 17:08 → ED 17:08 → 4W 21:56 → 4E 04-03 16:38
DX: F12.10 Cannabis abuse, uncomplicated; E83.42 Hypomagnesemia; D72.829 Elevated white blood cell count, unspecified; E87.6 Hypokalemia; G43.A1 Cyclical vomiting, in migraine, intractable

== ENCOUNTER 2019-06-14 08:57 | Inpatient (IN) ==
[2019-06-14] MEDS ORDERED: SODIUM CHLORIDE 0.9% 1000ML 1,000 ML IV ONE (09:42)
[2019-06-14] MEDS ORDERED: DIPHTHERIA/TETANUS/PERTUSSIS 0.5 ML SYR/VIAL IM ONE (09:42)
[2019-06-14 10:08] LABS: Basophils # (auto) 0.02 K/uL (0-0.2); Basophils % (auto) 0.2 %; Eosinophils # (auto) 0.13 K/uL (0-0.5); Hematocrit (blood only) 42.4 % (37-47); Hemoglobin 14.2 g/dL (12.0-16.0); Immature Granulocytes # (auto) 0.03 K/uL (0.00-0.02); Immature Granulocytes % (auto) 0.2 %; Lymphocytes # (auto) 1.03 K/uL (1.2-3.4); Lymphocytes % (auto) 7.8 %; Mean Corpuscular Hgb Conc 33.5 g/dL (32-36); Mean Corpuscular Volume 86.9 fL (80-100); Mean Platelet Volume 10.1 fL (7.4-10.4); Monocytes # (auto) 0.68 K/uL (0.11-0.59); Monocytes % (auto) 5.2 %; Neutrophils # (auto) 11.31 K/uL (1.4-6.5); Neutrophils % (auto) 85.6 %; Platelet Count 309 K/uL (130-400); RDW Coefficient of Variation 12.5 % (11.5-14.5); RDW Standard Deviation 40.1 fL (36.4-46.3); Red Blood Count 4.88 M/uL (4.2-5.4)
[2019-06-14 10:19] LABS: INR 0.9 (0.9-1.1); Partial Thromboplastin Ratio 0.9; Partial Thromboplastin Time 23.1 Seconds (21.0-31.0); Prothrombin Time 9.6 Seconds (9.0-12.0)
[2019-06-14 10:29] LABS: Alanine Aminotransferase 21 U/L (12-78); Albumin Level 4.5 gm/dl (3.4-5.0); Aspartate Aminotransferase 12 U/L (15-37); BUN Creatinine Ratio 14.4 (10-20); Bilirubin Direct < 0.1 mg/dl (0-0.2); Blood Urea Nitrogen 13 mg/dl (7-18); Calcium 9.3 mg/dl (8.5-10.1); Carbon Dioxide 24 mmol/L (21-32); Chloride 108 mmol/L (98-107); Est GFR (African American) 101.7; Est GFR (Non-African American) 87.8; Glucose 101 mg/dl (70-99); Potassium 3.8 mmol/L (3.5-5.1); Sodium 140 mmol/L (136-145)
[2019-06-14 10:32] LABS: Alkaline Phosphatase 82 U/L (45-117); Bilirubin,Total 0.5 mg/dl (0.2-1); Total Protein 7.4 gm/dl (6.4-8.2)
[2019-06-14 10:35] LABS: Pregnancy Test, Serum Negative (Negative)
[2019-06-14] MEDS ORDERED: MoRPHine SULFATE 4 MG/ML 1 ML CARP\\VIAL IV STA (10:42)
[2019-06-14] MEDS ORDERED: IOVERSOL 100ml IV PRN ×2 (11:06→14:26)
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
[2019-06-14] MEDS ORDERED: OXYCODONE HCL IR 5 MG TAB (IMMEDIATE RELEASE) PO PRN (15:02)
[2019-06-14] MEDS ORDERED: ONDANSETRON INJ 2 MG/ML 2 ML VIAL IV PRN (15:02)
[2019-06-14] MEDS ORDERED: ACETAMINOPHEN 325 MG TAB PO PRN (15:02)
[2019-06-14] MEDS: ACETAMINOPHEN 1,000 MG/100 ML VIAL IV SCH ×2 (15:15→23:44)
[2019-06-14] MEDS: SODIUM CHLORIDE 0.9% 1000ML 1,000 ML IV SCH (15:17)
[2019-06-14 15:42] LABS: Basophils # (auto) 0.01 K/uL (0-0.2); Basophils % (auto) 0.1 %; Eosinophils # (auto) 0.07 K/uL (0-0.5); Eosinophils % (auto) 0.8 %; Hematocrit (blood only) 38.9 % (37-47); Immature Granulocytes # (auto) 0.01 K/uL (0.00-0.02); Immature Granulocytes % (auto) 0.1 %; Lymphocytes # (auto) 1.34 K/uL (1.2-3.4); Lymphocytes % (auto) 15.3 %; Mean Corpuscular Hgb Conc 33.4 g/dL (32-36); Mean Corpuscular Volume 85.9 fL (80-100); Mean Platelet Volume 9.6 fL (7.4-10.4); Monocytes # (auto) 0.71 K/uL (0.11-0.59); Monocytes % (auto) 8.1 %; Neutrophils % (auto) 75.6 %; Platelet Count 289 K/uL (130-400); RDW Coefficient of Variation 12.5 % (11.5-14.5); RDW Standard Deviation 39.3 fL (36.4-46.3); Red Blood Count 4.53 M/uL (4.2-5.4); White Blood Count 8.74 K/uL (4.8-10.8)
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
--- NOTE | 2019-06-14 16:03 | Surgery Progress Note ---
Date of Service June 14, 2019 Assessment & Plan (1) Closed fracture of rib of left side: -pt. appears stable -left 10th rib fracture noted on imaging with out other noted injuries -will check serial labs as well as serial CXR -pain control measures in place -please see dictated consult from earlier today for more detailed assessment Subjective Pt. resting comfortably in bed at time of my exam. She does note pain in LUQ and left lateral-inferior aspect of chest wall. No N/V. No substernal chest pain. No headache or double vision. No SOB noted. Physical Exam Constitutional: well developed and well nourished; no acute distress Eyes: PERRL, conjunctivae normal, anicteric sclerae ENMT: no hemotympanum Neck: trachea midline, no thyromegaly no tracheal deviation and no neck crepitus Respiratory: normal respiratory effort, lungs clear to auscultation chest wall on left-lateral inferior aspect has some morales with palpation Cardiovascular: RRR, no murmur, no edema no friction rub Gastrointestinal (Abdomen): soft, mild TTP in LUQ. Bruise noted to the left o f umbilicus Neurologic: CN's II-XI intact bilaterally Results & Data Vital Signs (Past 12 Hours) Vital Signs Temp Pulse Pulse Resp BP BP Pulse Ox 06/14/19 15:41 36.7 C 73 16 111/76 100 06/14/19 14:00 96 H 19 06/14/19 13:30 91 H 21 06/14/19 13:13 73 12 116/69 100 06/14/19 13:12 81 20 116/69 100 06/14/19 13:00 101 H 16 06/14/19 12:40 91 H 15 100 06/14/19 12:38 80 13 122/71 06/14/19 12:00 85 15 06/14/19 11:30 92 H 14 06/14/19 11:00 92 H 15 117/73 99 06/14/19 10:30 100 H 14 119/77 100 06/14/19 10:00 97 H 21 119/80 99 06/14/19 09:48 95 06/14/19 09:30 93 H 20 121/75 99 06/14/19 09:10 117 H 17 128/76 99 06/14/19 09:07 36.9 C 104 H 16 131/84 99 (1) Closed fracture of rib of left side Encounter type: initial encounter Rib fracture type: single rib Qualified Code(s): S22.32XA - Fracture of one rib, left side, initial encounter for closed fracture
[2019-06-14 17:39] LABS: Appearance Urine Clear (Clear); Bacteria Urine Automated Negative (Negative); Bilirubin Urine Negative (Negative); Blood Urine 2+ (Negative); Color Urine Yellow; Glucose Urine UA Negative (Negative); Ketones Urine Negative (Negative); Leukocyte Esterase Urine Negative (Negative); Nitrite Urine Negative (Negative); Protein Urine Negative (Negative); RBC Urine Automated 0-4 /hpf (0-4); Specific Gravity Urine > 1.045 (1.000-1.030); Urobilinogen Urine Negative (Negative)
[2019-06-14 17:54] LABS: Amphetamines+Metham, Urine Neg (Neg); Barbiturates, Urine Neg (Neg); Benzodiazepine, Urine Neg (Neg); Cocaine, Urine Neg (Neg); MDMA (Ecstacy), Urine Neg (Neg); Methadone, Urine Neg (Neg); Opiate, Urine Pos (Neg); Phencyclidine, Urine Neg (Neg)
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
[2019-06-15] MEDS ORDERED: KETOROLAC TROMETHAMINE 15 MG/ML VIAL IV PRN (04:21)
[2019-06-15] MEDS ORDERED: IBUPROFEN 200 MG TAB PO PRN (04:21)
--- NOTE | 2019-06-15 06:17 | Surgery Progress Note ---
Date of Service June 15, 2019 Assessment & Plan (1) Closed fracture of rib of left side: 06/15/2019 will check f/u chest xray 2 view in dept pt likely will be able to go home today -pt. appears stable -left 10th rib fracture noted on imaging with out other noted injuries -will check serial labs as well as serial CXR -pain control measures in place -please see dictated consult from earlier today for more detailed assessment Subjective comfortable minimal discomfort no SOB Results & Data Vital Signs (Past 12 Hours) Vital Signs Temp Pulse Resp BP Pulse Ox Pulse Ox 06/15/19 04:00 36.5 C 77 20 108/65 98 06/15/19 01:44 100 06/14/19 23:03 36.9 C 73 19 109/69 100 06/14/19 19:00 36.6 C 82 20 135/86 100 PG Care Time/CCT Total # of Minutes Spent Total Time Spent with Patient: Total time spent is greater than 50% in coordination of care (as documented) at patient's floor/unit and/or counseling patient: (1) Closed fracture of rib of left side Encounter type: initial encounter Rib fracture type: single rib Qualified Code(s): S22.32XA - Fracture of one rib, left side, initial encounter for closed fracture
[2019-06-15 06:34] LABS: Hematocrit (blood only) 34.4 % (37-47); Hemoglobin 11.5 g/dL (12.0-16.0); Mean Corpuscular Hgb Conc 33.4 g/dL (32-36); Mean Corpuscular Volume 85.8 fL (80-100); Mean Platelet Volume 9.8 fL (7.4-10.4); Platelet Count 247 K/uL (130-400); RDW Coefficient of Variation 12.7 % (11.5-14.5); RDW Standard Deviation 40.1 fL (36.4-46.3); Red Blood Count 4.01 M/uL (4.2-5.4); White Blood Count 5.73 K/uL (4.8-10.8)
[2019-06-15 07:09] LABS: BUN Creatinine Ratio 11.8 (10-20); Calcium 8.3 mg/dl (8.5-10.1); Creatinine Clr Calc Pharmacy 116.9 ml/min; Est GFR (Non-African American) 125.1; Potassium 3.9 mmol/L (3.5-5.1)
[2019-06-15] MEDS: SODIUM CHLORIDE 0.9% 1000ML 1,000 ML IV SCH (07:38)
[2019-06-15] MEDS: ACETAMINOPHEN 1,000 MG/100 ML VIAL IV SCH (07:38)
--- NOTE | 2019-06-15 07:59 | XRay Report ---
XR chest 1V portable CLINICAL HISTORY: ?;lung contusion COMPARISON STUDY: 06/14/2019 FINDINGS: The bones soft tissues and hemidiaphragms are normal. The cardiomediastinal silhouette is n ormal. The lungs are clear. The pulmonary vasculature is normal. Left posterior 10th rib fractures ag ain noted IMPRESSION: Negative chest. Left posterior 10th rib fracture previously described unchanged The above report was generated using voice recognition software. It may contain grammatical, syntax or spelling errors. Electronically signed by: Jenaro Copeland M.D. 06/15/2019 7:58 AM
[2019-06-15 08:37] LABS: Appearance Urine Clear (Clear); Bacteria Urine Automated Negative (Negative); Bilirubin Urine Negative (Negative); Blood Urine 2+ (Negative); Color Urine Yellow; Epithelial Cell Urine Auto >30 /lpf (0-5); Glucose Urine UA Negative (Negative); Ketones Urine Negative (Negative); Leukocyte Esterase Urine Negative (Negative); Nitrite Urine Negative (Negative); Protein Urine Negative (Negative); RBC Urine Automated 0-4 /hpf (0-4); Specific Gravity Urine 1.016 (1.000-1.030); Urobilinogen Urine Negative (Negative)
[2019-06-15 12:00] LABS: Basophils # (auto) 0.02 K/uL (0-0.2); Basophils % (auto) 0.4 %; Hematocrit (blood only) 34.4 % (37-47); Hemoglobin 11.4 g/dL (12.0-16.0); Immature Granulocytes # (auto) 0.01 K/uL (0.00-0.02); Immature Granulocytes % (auto) 0.2 %; Lymphocytes # (auto) 1.38 K/uL (1.2-3.4); Lymphocytes % (auto) 27.6 %; Mean Corpuscular Hgb Conc 33.1 g/dL (32-36); Mean Corpuscular Volume 85.8 fL (80-100); Mean Platelet Volume 9.6 fL (7.4-10.4); Monocytes # (auto) 0.39 K/uL (0.11-0.59); Monocytes % (auto) 7.8 %; Platelet Count 223 K/uL (130-400); RDW Coefficient of Variation 12.5 % (11.5-14.5); RDW Standard Deviation 39.1 fL (36.4-46.3); Red Blood Count 4.01 M/uL (4.2-5.4)
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
[2019-06-18 23:28] LABS: Codeine Urine NEGATIVE NG/ML (CUTOFF=50); Hydrocodone Urine NEGATIVE NG/ML (CUTOFF=50); Hydromor Urine NEGATIVE NG/ML (CUTOFF=50); Marijuana Quant, GCMS Urine 144 NG/ML (CUTOFF=5); Morphine Urine 1100 NG/ML (CUTOFF=50); Norhydrocodone Conf Ur NEGATIVE NG/ML (CUTOFF=50); Noroxycodone Urine NEGATIVE NG/ML (CUTOFF=50); Oxycodone Urine NEGATIVE NG/ML (CUTOFF=50); Oxymorph Urine NEGATIVE NG/ML (CUTOFF=50)
== END 2019-06-15 15:49 | disposition home or self-care (01) | DRG 199 ==
LOC: ED 08:57 → SUATTDRO 13:53 → 2N 13:53

== ENCOUNTER 2021-03-19 22:29 | Inpatient (IN) ==
[2021-03-19] MEDS ORDERED: PENICILLIN G POTASSIUM 3 MU in DEXTROSE 5% 100 ML IV PRN (22:56)
[2021-03-19] MEDS ORDERED: OXYTOCIN 30 UNITS/500 ML BAG IV PRN ×2 (22:56)
[2021-03-19] MEDS ORDERED: PENICILLIN G POTASSIUM 6 MU in DEXTROSE 5% 250 ML IV STA (22:56)
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
[2021-03-19 23:27] LABS: Hematocrit (blood only) 36.3 % (37-47); Hemoglobin 12.6 g/dL (12.0-16.0); Mean Corpuscular Hgb Conc 34.7 g/dL (32-36); Mean Corpuscular Volume 83.4 fL (80-100); Mean Platelet Volume 11.5 fL (7.4-10.4); Platelet Count 179 K/uL (130-400); RDW Coefficient of Variation 13.2 % (11.5-14.5); RDW Standard Deviation 39.8 fL (36.4-46.3); Red Blood Count 4.35 M/uL (4.2-5.4); White Blood Count 12.24 K/uL (4.8-10.8)
[2021-03-19 23:46] LABS: Amphetamines+Metham, Urine Neg (Neg); Barbiturates, Urine Neg (Neg); Benzodiazepine, Urine Neg (Neg); Cocaine, Urine Neg (Neg); MDMA (Ecstacy), Urine Neg (Neg); Methadone, Urine Neg (Neg); Opiate, Urine Neg (Neg); Phencyclidine, Urine Neg (Neg)
[2021-03-19 23:49] LABS: Albumin Level 2.7 gm/dl (3.4-5.0); BUN Creatinine Ratio 15.4 (10-20); Calcium 8.6 mg/dl (8.5-10.1); Creatinine Clr Calc Pharmacy 156.6 ml/min; Est GFR (African American) 147.6; Est GFR (Non-African American) 127.4; Potassium 3.5 mmol/L (3.5-5.1)
[2021-03-19 23:51] LABS: Albumin Globulin Ratio 0.8 (0.9-2); Bilirubin,Total 0.3 mg/dl (0.2-1); Globulin 3.5 gm/dl (2.5-4.0); Total Protein 6.2 gm/dl (6.4-8.2)
[2021-03-20] MEDS: LACTATED RINGER'S 1,000 ML IV PRN ×2 (00:58→02:17)
[2021-03-20] MEDS ORDERED: SODIUM CHLORIDE 0.9% INJ 10 ML VIAL ONE (01:39)
[2021-03-20] MEDS ORDERED: ePHEDrine sulfate 50 MG/ML AMP ONE (01:39)
[2021-03-20] MEDS ORDERED: fentaNYL 2MCG/ML ROPIVACAINE 1.25MG/ML 100 ML BAG EPI ONE (01:40)
[2021-03-20] MEDS ORDERED: fentaNYL citrate 100 MCG/2 ML VIAL ONE (01:40)
[2021-03-20] MEDS ORDERED: BUPIVACAINE 0.25% 30 ML VIAL ONE (01:40)
[2021-03-20] MEDS ORDERED: ePHEDrine sulfate 50 MG/ML AMP IV PRN (01:42)
[2021-03-20] MEDS ORDERED: NALOXONE HCL 0.4 MG/1 ML VIAL/CARP IV PRN (01:42)
[2021-03-20] MEDS ORDERED: ONDANSETRON INJ 2 MG/ML 2 ML VIAL IV PRN (01:42)
[2021-03-20] MEDS ORDERED: NALOXONE HCL 1 MG in SODIUM CHLORIDE 0.9% 1000ML 1,000 ML IV PRN (01:42)
[2021-03-20] MEDS ORDERED: diphenhydrAMINE 50 MG/ML VIAL IV PRN (01:42)
[2021-03-20] MEDS ORDERED: fentaNYL 2MCG/ML ROPIVACAINE 1.25MG/ML 100 ML BAG EPI PRN (01:42)
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
--- NOTE | 2021-03-20 06:04 | Delivery Summary ---
Vaginal Delivery Summary Date of Service March 20, 2021 Vaginal Delivery Summary Vaginal Delivery Summary: Pre-delivery diagnoses: 26yo @ 39 04/21, SROM Post-delivery diagnoses: same Procedure: spontaneous vaginal delivery Surgeon: Romy Ohara DO Complications: none Findings: Viable female . Apgars: 9/9 . Weight pending, please see nursery records Estimated blood loss: 200ml Description of delivery: The patient progressed to complete with epidural anesthesia. She then began to push. She spontaneously vaginally delivered a viable from the cephalic presentation. The head delivered in RHONA position. The anterior shoulder delivered, followed by the posterior shoulder, followed by the body. The baby was placed on mother's abdomen and a spontaneous cry was heard. Delayed cord clamping was employed, and the cord was doubly clamped and cut. Cord blood was obtained. The placenta was delivered spontaneously intact with a 3-vessel cord. The uterus and vagina were swept of clots and debris. IV pitocin was given. The uterus became firm. The cervix, vagina, and perineum were inspected and no lacerations were noted. Excellent hemostasis was observed. The mother and baby are recovering in stable and good condition in the room. Sponge and instrument counts were correct x 2. Romy Ohara DO FACOOG [facility] Vaginal Delivery Charge Vaginal Delivery Codes: 25604 global code for the antepartum, delivery, and post- Delivery Type Details: [facility]
[2021-03-20] MEDS ORDERED: oxyCODONE/ACETAMINOPHEN 5mg/325mg TAB PO PRN (06:06)
[2021-03-20] MEDS ORDERED: SUPERCREAM 0.870% 15 GM JAR EXT PRN (06:06)
[2021-03-20] MEDS ORDERED: BENZOCAINE 20% AER SPR 82.5 GM CAN EXT PRN (06:06)
[2021-03-20] MEDS ORDERED: OXYTOCIN 30 UNITS/500 ML BAG IV PRN (06:06)
[2021-03-20] MEDS ORDERED: ACETAMINOPHEN 325 MG TAB PO PRN (06:06)
[2021-03-20] MEDS ORDERED: HYDROCORTISONE ACETATE 25 MG SUPP PR PRN (06:06)
[2021-03-20] MEDS ORDERED: bisacodyL 10 MG SUPP PR PRN (06:06)
[2021-03-20] MEDS ORDERED: DIPHTHERIA/TETANUS/PERTUSSIS 0.5 ML SYR/VIAL IM ONE (06:06)
--- NOTE | 2021-03-20 08:07 | Anesthesia Procedure Note ---
Date of Service March 20, 2021 Anesthesia Post Epidural Note Vital Signs Vital Signs: Temp Pulse Resp BP Pulse Ox 36.8 C 67 16 124/83 97 03/20/21 04:22 03/20/21 07:59 03/20/21 07:00 03/20/21 07:59 03/20/21 05:54 Notes Mental Status: alert / awake / arousable and participated in evaluation Nausea / Vomiting: adequately controlled Pain: adequately controlled Airway Patency, RR, SpO2: stable & adequate BP & HR: stable & adequate Hydration State: stable & adequate Neuraxial Anesthesia: was administered and sensory block is resolving Anesthetic Complications: no major complications apparent Epidural: Removed without complications and With tip intact
[2021-03-20] MEDS: PRENATAL VITAMIN 1 TAB PO SCH (09:29)
[2021-03-20] MEDS: IBUPROFEN 600 MG TAB PO PRN ×3 (09:29→21:14)
[2021-03-20] MEDS: DOCUSATE SODIUM 100 MG CAP PO SCH ×2 (09:29→21:15)
[2021-03-21] MEDS: IBUPROFEN 600 MG TAB PO PRN ×2 (03:53→08:40)
[2021-03-21 06:45] LABS: Hematocrit (blood only) 36.7 % (37-47); Hemoglobin 12.2 g/dL (12.0-16.0)
--- NOTE | 2021-03-21 07:12 | Obstetrical Progress Note ---
Date of Service <Juwan Flores MD - Last Filed: 03/21/21 07:12> March 21, 2021 Assessment & Plan <Juwan Flores MD - Last Filed: 03/21/21 07:12> (1) Encounter for supervision of normal in multigravida, antepartum: A/P: Patient is a 26yo female on PPD#1 following at 38+5wga. * Patient feels well today; eating well, voiding well, ambulating well * Pain well-controlled with ibuprofen 600mg q4h prn * PNL: Rh pos, RI, GBS pos, COVID neg * Routine care: OOB, ambulation, diet progression as tolerated * After discharge, will have six-week follow-up with Dr. Ohara Subjective <Juwan Flores MD - Last Filed: 03/21/21 07:12> Patient is a 26yo female on PPD#1 following at 38+5wga. This morning, patient feels well overall. Reports mild, crampy abdominal pain well- managed on analgesics. Tolerating PO intake without nausea or vomiting. Patient has been able to ambulate without lightheadedness or dizziness. Voiding well without difficulty. Lochia is gradually improving over time. Patient is . Review of Systems Denies fever, chills, CP, SOB, cough, breast pain, dysuria, leg pain, leg swelling, headache, and changes in vision. Physical Exam <Juwan Flores MD - Last Filed: 03/21/21 07:12> General: alert, oriented, no acute distress Cardiac: regular rate and rhythm, no murmur appreciated Respiratory: lungs clear to auscultation bilaterally a/p, no wheezes/rales/rhonchi, no increased work of breathing, symmetrical chest rise, no respiratory distress Abd: normal gravid abdomen, soft, minimally tender, BS present : uterine fundus firm, palpable 2-3 cm below umbilicus LE: no lower extremity edema bilaterally; no deep calf pain, Lionel's negative bilaterally Results & Data ([facility]) <Juwan Flores MD - Last Filed: 03/21/21 07:12> Vital Signs (Past 12 Hours) Vital Signs Temp Pulse Resp BP Pulse Ox 03/21/21 03:50 36.7 C 78 16 112/75 99 03/20/21 23:20 36.7 C 67 16 110/63 98 03/20/21 19:49 36.7 C 90 18 118/76 100 <Donte Martinez MD, FACOG - Last Filed: 03/21/21 07:49> Co-Signing Physician Notes Resident Physician Supervision Note: I interviewed and examined the patient. Discussed with Dr. Sifuentes and agree with findings and plan as documented in the note. Any exceptions or cl arifications are listed here: [None] Documented By: Donte Mratinez MD, FACOG Resident Activity Tracking <Juwan Flores MD - Last Filed: 03/21/21 07:12> Resident Involvement: Resident Care Provided Care Provided: OB Delivery
[2021-03-21] MEDS: PRENATAL VITAMIN 1 TAB PO SCH (08:40)
[2021-03-21] MEDS: DOCUSATE SODIUM 100 MG CAP PO SCH (08:40)
[2021-03-21] MEDS ORDERED: bisacodyL 5 MG TABEC PO SCH (20:00)
== END 2021-03-21 11:10 | disposition home or self-care (01) | DRG 807 ==
LOC: OPB 22:29 → 4S1 22:34 → 4S2 03-20 08:20

== ENCOUNTER 2021-11-02 16:49 | Observation (INO) ==
[2021-11-02 17:16] LABS: Basophils # (auto) 0.02 K/uL (0-0.2); Basophils % (auto) 0.2 %; Eosinophils # (auto) 0.01 K/uL (0-0.5); Eosinophils % (auto) 0.1 %; Hematocrit (blood only) 45.3 % (37-47); Hemoglobin 15.4 g/dL (12.0-16.0); Immature Granulocytes # (auto) 0.03 K/uL (0.00-0.02); Immature Granulocytes % (auto) 0.2 %; Lymphocytes % (auto) 11.4 %; Mean Corpuscular Volume 85.3 fL (80-100); Mean Platelet Volume 10.6 fL (7.4-10.4); Monocytes % (auto) 8.4 %; Neutrophils # (auto) 10.47 K/uL (1.4-6.5); Neutrophils % (auto) 79.7 %; Platelet Count 411 K/uL (130-400); RDW Coefficient of Variation 12.1 % (11.5-14.5); RDW Standard Deviation 37.6 fL (36.4-46.3); Red Blood Count 5.31 M/uL (4.2-5.4); White Blood Count 13.13 K/uL (4.8-10.8)
[2021-11-02 17:36] LABS: Alanine Aminotransferase 62 (12-78); Albumin Level 4.9 gm/dl (3.4-5.0); Aspartate Aminotransferase 40 U/L (15-37); BUN Creatinine Ratio 22.2 (10-20); Blood Urea Nitrogen 17 mg/dl (7-18); Calcium 10.2 mg/dl (8.5-10.1); Carbon Dioxide 26 mmol/L (21-32); Chloride 101 mmol/L (98-107); Creatinine Clr Calc Pharmacy 102.1 ml/min; Est GFR (African American) 124.4 ml/min; Est GFR (Non-African American) 107.3 ml/min; Glucose 106 mg/dl (70-99); Lipase 65 U/L (73-393); Potassium 3.2 mmol/L (3.5-5.1); Sodium 138 mmol/L (136-145)
[2021-11-02 17:40] LABS: Pregnancy Test, Serum Negative (Negative)
[2021-11-02] MEDS ORDERED: SODIUM CHLORIDE 0.9% 1000ML 1,000 ML IV ONE (17:43)
[2021-11-02] MEDS ORDERED: ONDANSETRON INJ 2 MG/ML 2 ML VIAL IV STA ×2 (17:43→19:47)
[2021-11-02 17:45] LABS: Appearance Urine Clear (Clear); Bacteria Urine Automated Negative (Negative); Blood Urine Negative (Negative); Color Urine Dark Yellow; Epithelial Cell Urine Auto >30 /lpf (0-5); Glucose Urine UA Negative (Negative); Ketones Urine 4+ (Negative); Leukocyte Esterase Urine Trace (Negative); Nitrite Urine Negative (Negative); Protein Urine 1+ (Negative); RBC Urine Automated 0-4 /hpf (0-4); Specific Gravity Urine 1.035 (1.000-1.030); Urobilinogen Urine Negative (Negative); pH Urine 6.5 (4.5-7.5)
[2021-11-02 17:47] LABS: Bilirubin Urine 1+ (Negative)
[2021-11-02] MEDS ORDERED: FAMOTIDINE 20MG IV PUSH 20 MG/5 ML SYR IV STA (17:52)
[2021-11-02] MEDS ORDERED: METOCLOPRAMIDE HCL INJ 5 MG/ML 2 ML VIAL IV ONE ×2 (17:52→22:15)
[2021-11-02] MEDS ORDERED: MAGNESIUM SULFATE / D5W 1 GM/100 ML BAG IV STA (17:53)
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
--- NOTE | 2021-11-02 18:23 | XRay Report ---
XR chest 1V portable HISTORY: 26 years-old Female syncope acute syncope COMPARISON: Chest radiograph 06/15/2018 TECHNIQUE: Portable AP view of the chest FINDINGS: The cardiomediastinal and hilar silhouettes are within normal limits. No pneumothorax, pleural effusi on, airspace consolidation or overt pulmonary edema. Bones appear grossly intact. IMPRESSION: Normal exam. ACT 112: Negative or not required by law. The above report was generated using voice recognition software. It may contain grammatical, syntax o r spelling errors. Electronically signed by: Edmund Perez M.D. 11/02/2021 6:22 PM
[2021-11-02 18:27] LABS: Albumin Globulin Ratio 1.4 (0.9-2); Globulin 3.5 gm/dl (2.5-4.0); Total Protein 8.4 gm/dl (6.4-8.2); Troponin I < 0.015 ng/ml (0-0.045)
[2021-11-02 18:35] LABS: Alkaline Phosphatase 88 U/L (45-117); Bilirubin,Total 1.4 mg/dl (0.2-1)
[2021-11-02] MEDS ORDERED: OPTIRAY 320 100ml IV ONE (18:42)
--- NOTE | 2021-11-02 19:01 | CT Scan Report ---
CT head/brain wo con CLINICAL HISTORY: 26 years-old Female with n/v, syncope. Acute nausea and vomiting with syncope TECHNIQUE: Multiple axial CT images of the head were obtained without contrast. A dose lowering tech nique was utilized adhering to the principles of ALARA. COMPARISON: Head CT 06/14/2019 FINDINGS: No acute intracranial hemorrhage, midline shift, intracranial mass, hydrocephalus, territorial ischem ia or abnormal extra-axial collection. The calvarium is intact. Trace mastoid effusions. Mild mucosal maxillary sinuses. IMPRESSION: No acute intracranial abnormality. ACT 112: Negative or not required by law. The above report was generated using voice recognition software. It may contain grammatical, syntax o r spelling errors. Electronically signed by: Edmund Perez M.D. 11/02/2021 7:00 PM
--- NOTE | 2021-11-02 19:27 | CT Scan Report ---
ABDOMEN AND PELVIS CT WITH IV CONTRAST CT DOSE: 829.60 mGy.cm HISTORY: Acute nausea with vomiting and diarrhea n/v/d, pain TECHNIQUE: Multiaxial CT images of the abdomen and pelvis were performed following the IV administrat ion of 95 cc of Optiray, A dose lowering technique was utilized adhering to the principles of ALARA. COMPARISON STUDY: CT abdomen pelvis 06/14/2019 FINDINGS: Imaged inferior cardiac chambers are unremarkable. 3 mm solid nodule of the left lower lobe on image 58 is unchanged and likely benign. There is no pneumatosis or pneumoperitoneum. Unremarkabl e spleen, pancreas, adrenal glands and liver. Cholecystectomy. Patent portal vein. Unremarkable kidne ys. No hydronephrosis. Urinary bladder wall thickening with partial distention. Follicular changes of the ovaries measure up to 2.6 cm on the left. Unremarkable uterus. Aorta and IVC are unremarkable. N o adenopathy. There is no bowel obstruction or bowel wall thickening. Normal appendix. Incidental note is made of a jejunal jejunal intussusception within the left midabdomen on image 201 of series 5 without upstream dilation or social bowel wall thickening. Unremarkable soft tissues. Healed chronic fracture of the posterior left 10th rib. There is mild sclerosis of the SI joints bilaterally. IMPRESSION: 1. No acute intra-abdominal or intrapelvic abnormality. Normal appendix. 2. Cholecystectomy. ACT 112: Negative or not required by law. The above report was generated using voice recognition software. It may contain grammatical, syntax o r spelling errors. Electronically signed by: Edmund Perez M.D. 11/02/2021 7:26 PM
[2021-11-02] MEDS: POTASSIUM CHLORIDE / WTR 10 MEQ/100 ML PLCT IV SCH ×2 (19:56→21:21)
[2021-11-02] MEDS ORDERED: SODIUM CHLORIDE 0.9% 1000ML 1,000 ML IV SCH (22:30)
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
[2021-11-02] MEDS ORDERED: diphenhydrAMINE 50 MG/ML VIAL IV PRN (23:47)
[2021-11-02] MEDS ORDERED: POTASSIUM CHLORIDE 10 MEQ TABCR PO STA (23:47)
[2021-11-02] MEDS ORDERED: POTASSIUM CHLORIDE 20 MEQ in SODIUM CHLORIDE 0.9% 1000ML 1,000 ML IV SCH (23:49)
[2021-11-03] LABS: Amphetamines+Metham, Urine Neg (Neg); Barbiturates, Urine Neg (Neg); Benzodiazepine, Urine Neg (Neg); Cocaine, Urine Neg (Neg); MDMA (Ecstacy), Urine Neg (Neg); Methadone, Urine Neg (Neg); Opiate, Urine Neg (Neg); Phencyclidine, Urine Neg (Neg)
[2021-11-03] MEDS: NSS + 20MEQ KCL 20 MEQ/1,000 ML BAG IV SCH ×2 (00:55→09:03)
[2021-11-03] MEDS ORDERED: ACETAMINOPHEN 325 MG TAB PO PRN (01:08)
[2021-11-03] MEDS ORDERED: ONDANSETRON INJ 2 MG/ML 2 ML VIAL IV PRN (01:08)
[2021-11-03 07:42] LABS: Estimated Average Glucose 108 mg/dl; Hemoglobin A1C 5.4 % (4.5-5.6)
[2021-11-03] MEDS ORDERED: FAMOTIDINE 20 MG in SYRINGE 3 ML IV SCH (09:00)
[2021-11-03 10:09] LABS: Hematocrit (blood only) 40.7 % (37-47); Hemoglobin 13.6 g/dL (12.0-16.0); Mean Corpuscular Hgb Conc 33.4 g/dL (32-36); Mean Corpuscular Volume 86.8 fL (80-100); Mean Platelet Volume 10.4 fL (7.4-10.4); Platelet Count 314 K/uL (130-400); RDW Coefficient of Variation 12.3 % (11.5-14.5); RDW Standard Deviation 39.2 fL (36.4-46.3); Red Blood Count 4.69 M/uL (4.2-5.4); White Blood Count 9.78 K/uL (4.8-10.8)
[2021-11-03 10:33] LABS: Alanine Aminotransferase 51 (12-78); Albumin Globulin Ratio 1.4 (0.9-2); Albumin Level 3.7 gm/dl (3.4-5.0); Alkaline Phosphatase 68 U/L (45-117); Aspartate Aminotransferase 19 U/L (15-37); BUN Creatinine Ratio 17.9 (10-20); Bilirubin,Total 1.3 mg/dl (0.2-1); Blood Urea Nitrogen 9 mg/dl (7-18); Calcium 8.2 mg/dl (8.5-10.1); Carbon Dioxide 22 mmol/L (21-32); Chloride 107 mmol/L (98-107); Est GFR (African American) > 150.0 ml/min; Est GFR (Non-African American) 134.5 ml/min; Globulin 2.6 gm/dl (2.5-4.0); Glucose 89 mg/dl (70-99); Magnesium 2.2 mg/dl (1.8-2.4); Potassium 3.6 mmol/L (3.5-5.1); Sodium 138 mmol/L (136-145); Total Protein 6.4 gm/dl (6.4-8.2)
--- NOTE | 2021-11-03 15:50 | Discharge Summary ---
Date of Service November 03, 2021 Admission HPI Per Admitting Provider 26 yo F Hx anxiety, medical marijuana use presents for 3 days of intractable nausea and vomiting, with 2 days of now resolved diarrhea. She reports that on Wednesday she went to [place] and had wings there, and shortly after started having nausea, vomiting, and diarrhea. Since that time, she has had a hard time keeping food and fluids down. However, she reports that the diarrhea has resolved. Yesterday she went to [place] ER and was given Zofran for suspected gastroenteritis. She has been unable to keep anything down despite this, and today started to feel weak and came here for evaluation. She admits that she has a medical marijuana card for anxiety, and also "to eat". She states that if she does not smoke in the morning after having her coffee, she will barely eat throughout the day (not typically due to nausea but due to no appetite). She does not endorse hospitalization for nausea or vomiting prior to today. In the ER CTAP and CT Head without acute pathology. Labwork notable for mild leukocytosis, thrombocytosis, hypokalemia to 3.2, glucose 106, mildly elevated TBili and AST, normal lipase, negative UPreg, negative COVID 19. Her symptoms while mildly improved with IV nausea medications were not resolved and she was still nauseated with any PO intake and so hospitalist service was consulted for observation. Principal Diagnosis Likely cannabinoid hyperemesis syndrome Discharge Exam Constitutional WD/WN, vitals as above Eyes EOM intact bilaterally; no conjunctival abnormality ENMT external ear and nose normal, oropharynx normal Neck trachea midline, no thyromegaly normal visual inspection Respiratory normal respiratory effort, lungs clear to auscultation no respiratory distress Cardiovascular RRR, no murmur, no edema Gastrointestinal (Abdomen) Inspection/Auscultation: abdomen normal to inspection; abdomen not distended Musculoskeletal no cyanosis or clubbing, extremities motor strength 5/5 Skin no rashes, warm and dry Neurologic moves all extremities and awake Psychiatric Orientation: alert, oriented to person and cooperative Discharge Data Allergies Allergy/AdvReac Type Severity Reaction Status Date / Time nickel Allergy Mild Redness of Verified 11/02/21 21:01 Skin Consultations 11/02/21 23:17 ED Decision to Admit Stat Ordered Studies 11/02/21 17:52 CT abd pelvis IV con only Stat 11/02/21 17:56 CT head/brain wo con Stat Hospital Course (1) Intractable nausea and vomiting: Likely cannabinoid hyperemesis syndrome - Improved off marijuana. Encouraged cessation/abstinence. Labs improved/resolving by discharge. Able to tolerate lunch. Discharged. Total Time Total Time Spent Total Time Spent (In Minutes): 35 Discharge Plan Discharge Items Patient Disposition: Home - Self-Care Reason For Visit: INTRACTABLE NAUSEA AND VOMITING Discharge Diagnosis: Nausea and vomiting - Likely cannabinoid hyperemesis Activity: Resume your previous activity Non-emergency contact: Primary Care Provider Call non-emergency contact if: your symptoms worsen Follow-up/Referrals: PCP,NO [Primary Care Provider] - Diet: Regular Addtl Attending Provider Instructions: Ms. Cox, You were admitted to the hospital with intractable nausea and vomiting. We did a thorough check of your body including CT scans of your head and abdomen and a chest x-ray. We also did labs which did not indicate any concern such as bleeding in the stomach or other issues. You mentioned to me that your nausea got better with hot showers and hot baths. This is most typically associated with cannabinoid hyperemesis which is caused by overuse of marijuana. This issue generally resolves on its own when you abstain from smoking marijuana. This occurred here in the hospital, and you are tolerating a diet well. Please use your home Zofran as needed. Slowly re-introduce foods and drinks into your diet. Please avoid marijuana to avoid a recurrence of your nausea and vomiting. Pending Studies at Discharge: No Stand-Alone Forms: [facility], Smoking Cessation Medications and DC Order Prescriptions: Continued ondansetron HCl 4 mg tablet 4 mg PO Q8H PRN (Reason: NAUSEA/VOMITING) Qty: 20 RF: 0 Discharge Orders: Discharge Order (Routine); Ordered 11/03/21 Ordered By: Brooks Gallagher Admission Data Admit Date/Time: 11/02/21 23:47 Attending Provider: Brooks Gallagher Admit Provider: Autumn De La Cruz Primary Care Provider: PCP,NO Other Providers: Brooks Gallagher Other Interventions: Discharge Summary Assessment (RN) Last Done: 11/03/21 13:55 Coding Level of Care Code 18501 OBS Care - Discharge Diagnoses Intractable nausea and vomiting R11.2
--- NOTE | 2021-11-04 03:49 | Billing Data ---
Date of Service November 04, 2021 Coding Level of Care Code INT OBSERVATION CARE 70M LVL 3
--- NOTE | 2021-11-04 22:03 | Electrocardiogram Report ---
Test Reason : Blood Pressure : / mmHG Vent. Rate : 056 BPM Atrial Rate : 056 BPM P-R Int : 134 ms QRS Dur : 090 ms QT Int : 464 ms P-R-T Axes : 077 075 068 degrees QTc Int : 447 ms Sinus bradycardia Otherwise normal ECG When compared with ECG of 14-JUN-2019 10:00, Vent. rate has decreased BY 31 BPM Confirmed by Christian Cochran ([id number]) on 11/04/2021 10:03:17 PM Referred By: REFERRED SELF Confirmed By:Christian Cochran
[2021-11-05 09:46] LABS: Marijuana Quant, GCMS Urine 3834 ng/mL (<5)
== END 2021-11-03 14:21 | disposition home or self-care (01) ==
LOC: EDINP 16:49 → ED 16:49 → SUATTDRO 23:47 → EDINP 11-03 01:10
DX: R11.2 Nausea with vomiting, unspecified; D72.829 Elevated white blood cell count, unspecified; E87.6 Hypokalemia; D75.839 Thrombocytosis, unspecified; F17.210 Nicotine dependence, cigarettes, uncomplicated

== ENCOUNTER 2025-08-26 13:32 | Inpatient (IN) ==
[2025-08-26] MEDS ORDERED: LIDOCAINE 1% LOCAL 20 ML VIAL INFIL PRN (13:56)
[2025-08-26] MEDS ORDERED: LACTATED RINGER'S 1,000 ML IV PRN (13:56)
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
[2025-08-26 14:31] LABS: Hematocrit (blood only) 38.1 % (37.0-47.0); Hemoglobin 13.3 g/dl (12.0-16.0); Mean Corpuscular Hemoglobin 29.0 pg (25.0-34.0); Mean Corpuscular Volume 83.0 fL (80.0-100.0); Platelet Count 194 K/uL (130-400); RDW Standard Deviation 39.0 fL (36.4-46.3); Red Blood Count 4.59 M/uL (4.20-5.40); White Blood Count 10.47 K/ul (4.8-10.8)
--- NOTE | 2025-08-26 14:52 | Labor Progress Brief Note ---
Date of Service August 26, 2025 Subjective just srom, more pressure Assessment & Plan (1) Normal labor: Plan get epidural , expectant management. fetus category one Admission and Anticipated Discharge Date Admission Date: August 26, 2025 Physical Exam Physical Exam: cx--5//-2 clear fluid toco--q2-4min efm--140s with mod variability, accels to 150s, no decels Results & Data Vital Signs (Past 12 Hours) Vital Signs Temp Pulse BP 08/26/25 14:15 37.4 C 08/26/25 13:41 95 H 140/87 Coding Level of Care Code None Diagnoses Normal labor O80; Z37.9
[2025-08-26] MEDS ORDERED: PROMETHAZINE 6.25 MG/50.25 ML BAG IV PRN (14:54)
[2025-08-26] MEDS ORDERED: METOCLOPRAMIDE HCL 20 MG in SODIUM CHLORIDE 0.9% 50 ML IV PRN (14:54)
[2025-08-26] MEDS ORDERED: SODIUM CHLORIDE 0.9% PF INJ 10 ML VIAL EPI PRN (14:54)
[2025-08-26] MEDS ORDERED: NALOXONE HCL 1 MG in SODIUM CHLORIDE 0.9% 1,000 ML IV PRN (14:54)
[2025-08-26] MEDS ORDERED: diphenhydrAMINE 50 MG/ML VIAL IV PRN (14:54)
[2025-08-26] MEDS ORDERED: NALBUPHINE HCL INJ 10 MG/ML AMP IV PRN (14:54)
[2025-08-26] MEDS ORDERED: BUPIVACAINE 0.25% PF 30 ML VIAL EPI PRN (14:54)
[2025-08-26] MEDS ORDERED: ONDANSETRON INJ 2 MG/ML 2 ML VIAL IV PRN (14:54)
[2025-08-26] MEDS ORDERED: NALOXONE HCL 0.4 MG/1 ML VIAL/CARP IV PRN (14:54)
[2025-08-26] MEDS ORDERED: fentANYL 2 MCG/ML BUPIVacaine 0.125%-NSS 100ML BAG EPI PRN (14:54)
[2025-08-26] MEDS ORDERED: LIDOCAINE 2% MPF LOCAL 5 ML VIAL EPI PRN (14:54)
[2025-08-26] MEDS ORDERED: ROPIVACAINE 0.5% PF 5 MG/ML 20 ML VIAL EPI PRN (14:54)
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
[2025-08-26] MEDS: BUPIVACAINE 0.25% PF 30 ML VIAL ONE (15:10)
[2025-08-26] MEDS: fentANYL 2 MCG/ML BUPIVacaine 0.125%-NSS 100ML BAG ONE (15:15)
[2025-08-26] MEDS: LIDOCAINE 2%/EPINEPHRINE 1:200,000 20 ML PF ONE (15:29)
[2025-08-26] MEDS: SODIUM CHLORIDE 0.9% PF INJ 10 ML VIAL ONE (15:29)
[2025-08-26] MEDS: BUPIVACAINE 0.25% PF 30 ML VIAL EPI STA (15:29)
[2025-08-26] MEDS: SODIUM CHLORIDE 0.9% PF INJ 10 ML VIAL EPI STA (15:30)
[2025-08-26] MEDS: LIDOCAINE 2%/EPINEPHRINE 1:200,000 20 ML PF EPI STA (15:30)
[2025-08-26] MEDS: OXYTOCIN 30 UNITS/NSS 30 UNITS/500 ML BAG IV PRN (16:25)
--- NOTE | 2025-08-26 16:35 | Delivery Summary ---
Vaginal Delivery Summary Date of Service August 26, 2025 Vaginal Delivery Summary Pre-operative Diagnosis: at 40 weeks labor gdm Post-operative Diagnosis: same Procedure: epidural QBL: 102cc Anesthesia: epidural Procedure: The patient presented in labor. She had srom of clear fluid. Got epidural. Progressed to c/c/+3. The patient pushed for one contraction to deliver a viable female in direct OP position. The rest of the infant was then delivered without difficulty through a nuchal/body cord. The baby was vigorous. The nose and mouth were bulb suctioned and the infant was placed in the maternal abdomen for drying and attention. Cord was clamped and cut at one minute of life. Cord blood and segment obtained. Placenta delivered spontaneous, intact with a three vessel cord. Cervix/sulci/rectum/perineum were intact. Hemostasis obtained with dilute pitocin and fundal massage. Apgars were 8/9. Mother and baby doing well at the end of the delivery. [facility] Vaginal Delivery Charge Delivery Type Details: [facility]
[2025-08-26] MEDS ORDERED: BENZOCAINE 20% SPRY 85 APPLN/85 GM CAN EXT PRN (16:51)
[2025-08-26] MEDS ORDERED: DIPHTHER/TETAN/PERTUS Vaccine (Tdap, Adol/Adult) 0.5mL IM ONE (16:51)
[2025-08-26] MEDS ORDERED: OXYTOCIN 30 UNITS/NSS 30 UNITS/500 ML BAG IV PRN (16:51)
[2025-08-26] MEDS ORDERED: HYDROCORTISONE ACETATE 25 MG SUPP PR PRN (16:51)
--- NOTE | 2025-08-26 18:30 | Anesthesia Procedure Note ---
Date of Service August 26, 2025 Anesthesia Post Epidural Note Vital Signs Vital Signs: Temp Pulse Resp BP Pulse Ox 36.7 C 78 18 132/81 100 08/26/25 15:57 08/26/25 18:00 08/26/25 15:57 08/26/25 18:00 08/26/25 17:54 Notes Mental Status: alert / awake / arousable and participated in evaluation Nausea / Vomiting: adequately controlled Pain: adequately controlled Airway Patency, RR, SpO2: stable & adequate BP & HR: stable & adequate Hydration State: stable & adequate Neuraxial Anesthesia: was administered and sensory block is resolving Anesthetic Complications: no major complications apparent and Pt Satisfied with anesthetic care Epidural: Removed without complications and With tip intact
[2025-08-27] MEDS: DOCUSATE SODIUM 100 MG CAP PO SCH (00:33)
[2025-08-27] MEDS: ACETAMINOPHEN 325 MG TAB PO PRN (06:01)
[2025-08-27 06:23] LABS: Hematocrit (blood only) 36.1 % (37.0-47.0); Hemoglobin 12.0 g/dl (12.0-16.0)
--- NOTE | 2025-08-27 07:11 | Obstetrical Progress Note ---
Date of Service August 27, 2025 Assessment & Plan (1) Encounter for assessment: Plan Doing well. Would like d/c later this evening. Instructions reviewed. f/u in 6 weeks. Day #:: 1 Subjective Ambulation: ambulating normally Voiding: no voiding problems Passing Gas:: Yes Diet Tolerance:: regular diet Lochia:: Small Feeding Type:: breast feeding Feeling well. Physical Exam Constitutional WD/WN, vitals as above Cardiovascular Extremities: no calf tenderness and no edema Gastrointestinal (Abdomen) soft, nt, nd, ff/nt at 1 below u Psychiatric A+Ox3, euthymic affect Results & Data Vital Signs (Past 12 Hours) Vital Signs Temp Pulse Resp BP Pulse Ox O2 Del Method 08/27/25 04:08 36.8 C 85 18 116/73 99 Room Air 08/26/25 23:10 36.9 C 85 18 125/71 98 Room Air 08/26/25 19:45 36.7 C 76 18 120/80 98 Room Air
[2025-08-27] MEDS: PRENATAL VITAMIN 1 TAB PO SCH (07:31)
[2025-08-27] MEDS: IBUPROFEN 600 MG TAB PO PRN (07:31)
[2025-08-27 08:35] VITALS: RESP 14
[2025-08-27] MEDS: INFLUENZA VACC TS2025-26(6m+)/PF (IIV3) 0.5mL Syr IM ONE (10:00)
[2025-08-27] MEDS ORDERED: Nursing to Pharmacy Communication SCH (10:00)
[2025-08-27 14:47] VITALS: BP 138/86; PULSE 82; TEMP 98.4; O2SAT 99
== END 2025-08-27 18:15 | disposition home or self-care (01) | DRG 807 ==
LOC: OPB 13:32 → 4S1 13:34 → 4E2 18:45